=== PATIENT | female | born 1960 | race Caucasian/White ===

== ENCOUNTER 2019-01-30 06:16 | Inpatient (IN) | payer BC ==
[2019-01-26 10:24] LABS: BASOPHILS % 0.4 % (0.0-1.0); EOSINOPHILS # (AUTO) 0.2 (0.0-0.4); EOSINOPHILS % 2.7 % (0.0-6.0); HEMATOCRIT 35.4 % (34.2-44.1); HEMOGLOBIN 11.8 g/dL (12.0-16.0); LYMPHOCYTES # (AUTO) 2.1 (1.0-3.2); LYMPHOCYTES % 36.9 % (18.0-39.1); MEAN CORPUSCULAR HEMOGLOBIN 31.2 pg (28-32); MEAN CORPUSCULAR HGB CONC 33.3 g/dL (31-35); MEAN CORPUSCULAR VOLUME 93.7 fL (81-99); MONOCYTES # (AUTO) 0.9 (0.2-0.8); MONOCYTES % 15.9 % (4.4-11.3); NEUTROPHILS # (AUTO) 2.5 (2.1-6.9); NEUTROPHILS % 43.9 % (38.7-80.0); PLATELET COUNT 107 x10e3/uL (140-360); RED BLOOD COUNT 3.78 x10e6/uL (3.6-5.1); RED CELL DISTRIBUTION WIDTH 11.9 % (11.7-14.4)
[2019-01-26 10:27] LABS: INR 0.92; PROTHROMBIN TIME 12.9 seconds (11.9-14.5)
[2019-01-26 10:28] LABS: PARTIAL THROMBOPLASTIN TIME 36.5 seconds (23.8-35.5)
[2019-01-26 10:38] LABS: ALANINE AMINOTRANSFERASE 16 IU/L (0-55); ALBUMIN 3.5 g/dL (3.5-5.0); ALKALINE PHOSPHATASE 131 IU/L (40-150); ANION GAP 11.9 mmol/L (8-16); BLOOD UREA NITROGEN 9 mg/dL (7-26); BUN/CREATININE RATIO 14 (6-25); CALCIUM 9.4 mg/dL (8.4-10.2); CARBON DIOXIDE 27 mmol/L (22-29); CHLORIDE 105 mmol/L (98-107); CREATININE, SERUM 0.65 mg/dL (0.57-1.11); EST GLOMERULAR FILTRATION RATE > 60 ML/MIN (60-); GLUCOSE 79 mg/dL (74-118); POTASSIUM 3.9 mmol/L (3.5-5.1); SODIUM 140 mmol/L (136-145)
--- OUTSIDE RECORDS SUMMARY | 2019-01-29 05:34 | XMS REPORT | Clinical Summary ---
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 Active multivitamin with Take 1 tablet 0 minerals tablet by mouth daily. Active CALCIUM CARBONATE/VITAMIN Take by mouth 0 D3 (CALCIUM 500 + D, D3, daily. ORAL) Active cyanocobalamin 1000 MCG Take 1,000 0 tablet mcg by mouth daily. Active vitamin E 400 UNIT Take 400 0 capsule Units by mouth 2 (two) times a day. Active atenolol (TENORMIN) 50 MG TAKE 1 TABLET 90 tablet 1 tablet BY MOUTH 9 DAILY 04/18/2018 Discontinued hydroCHLOROthiazide Take 1 tablet 90 tablet 1 (HYDRODIURIL) 12.5 MG (12.5 mg 8 tablet total) by mouth once daily. 04/18/2018 Discontinued atenolol (TENORMIN) 50 MG Take 50 mg by 0 tablet mouth daily. 04/18/2018 Discontinued hydroCHLOROthiazide Take 25 mg by 0 (HYDRODIURIL) 25 MG mouth daily. tablet 04/18/2018 Discontinued ursodiol (ACTIGALL) 300 Take 300 mg 0 mg capsule by mouth 2 (two) times a day. 04/18/2018 Discontinued atenolol (TENORMIN) 50 MG TAKE 1 TABLET 90 tablet 0 tablet BY MOUTH 8 DAILY 09/05/2018 Discontinued estradiol (ESTRACE) 0.01 Insert 0.5 g 42.5 g 1 % (0.1 mg/gram) vaginal into the 8 creamIndications: Urinary vagina urgency, Postmenopausal nightly. atrophic vaginitis Every night for 2 weeks, then three times a week. 08/26/2018 Discontinued atenolol (TENORMIN) 50 MG Take 1 tablet 90 tablet 1 tablet (50 mg total) 8 by mouth daily. 09/22/2018 Discontinued atenolol (TENORMIN) 50 MG TAKE 1 TABLET 90 tablet 0 tablet BY MOUTH 9 DAILY 09/05/2018 Discontinued cyclobenzaprine Take 1 tablet 60 tablet 3 (FLEXERIL) 10 mg tablet (10 mg total) 9 by mouth 3 (three) times a day as needed for muscle spasms for up to 30 days. 09/06/2018 Discontinued nitrofurantoin, Take 1 10 capsule 0 macrocrystal-monohydrate, capsule (100 9 (MACROBID) 100 MG capsule mg total) by mouth 2 (two) times a day for 5 days. 10/05/2018 cyclobenzaprine Take 1 tablet 60 tablet 3 (FLEXERIL) 10 mg tablet (10 mg total) 9 by mouth 3 (three) times a day as needed for muscle spasms for up to 30 days. 09/11/2018 nitrofurantoin, Take 1 10 capsule 0 macrocrystal-monohydrate, capsule (100 9 (MACROBID) 100 MG capsule mg total) by mouth 2 (two) times a day for 5 days. 11/01/2018 Discontinued atenolol (TENORMIN) 50 MG Take 1 tablet 90 tablet 0 tablet (50 mg total) 9 by mouth daily. 12/07/2018 Discontinued nitrofurantoin, Take 1 10 capsule 0 macrocrystal-monohydrate, capsule (100 9 (MACROBID) 100 MG capsule mg total) by mouth 2 (two) times a day for 5 days. 12/12/2018 nitrofurantoin, Take 1 10 capsule 0 macrocrystal-monohydrate, capsule (100 9 (MACROBID) 100 MG capsule mg total) by mouth 2 (two) times a day for 5 days. 01/01/2019 levoFLOXacin (LEVAQUIN) Take 1 tablet 7 tablet 0 500 MG tablet (500 mg 9 total) by mouth daily for 7 days. Status Hospital, Clinic, or Ordered Dose Route Frequency Start End Date Other Facility Date Administered Medication Active triamcinolone acetonide 40 mg IM once 12/07/19 (KENALOG-40) injection 40 18 8 mgIndications: Posterior tibial tendon dysfunction Ended ropivacaine (NAROPIN) 0.2 12 mg epid continuous 12/07/19 % epidural 12 18 9 mgIndications: Posterior tibial tendon dysfunction Ended methylPREDNISolone 40 mg IM once 09/06/19 acetate (DEPO-MEDROL) 19 9 injection 40 mgIndications: Acute left-sided low back pain with left-sided sciatica Active Problems Problem Noted Date Left knee pain 09/15/2018 Right hip pain 09/15/2018 Chronic midline low back pain with left-sided sciatica 09/15/2018 Posterior tibial tendon dysfunction 12/06/2017 Chronic active hepatitis 09/03/2015 Hypertension 09/03/2015 Menopausal flushing 09/03/2015 Numbness of foot 09/03/2015 Encounters Care Team Description Date Type Specialty Althea Gentile MD 01/17/2019 Telephone Internal Medicine Lucia Camarena MA Spinal stenosis of lumbar region without neurogenic claudication 01/17/2019 Orders Only Internal Medicine Cassie Van MD 01/08/2019 Orders Only Internal Medicine Althea Gentile MD 01/08/2019 Documentation Internal Medicine Naz Basilio MA 01/05/2019 Telephone Internal Medicine Marion Desai MA Acute cystitis without hematuria (Primary Dx) 01/04/2019 Orders Only Internal Medicine Althea Gentile MD 12/27/2018 Telephone Internal Medicine Althea Gentile MD 12/25/2018 Orders Only Internal Medicine Lucia Camarena MA Abnormal urinalysis (Primary Dx) 12/22/2018 Orders Only Internal Medicine Charbel Rajput MA 12/07/2018 Telephone Urogynecology Lucia Camarena MA 12/07/2018 Orders Only Internal Medicine Althea Gentile MD 12/07/2018 Orders Only Internal Medicine Althea Gentile MD 12/05/2018 Orders Only Internal Medicine Althea Gentile MD Preop exam for internal medicine (Primary Dx); Heart murmur; Essential hypertension 11/22/2018 Office Visit Internal Medicine Althea Gentile MD 11/02/2018 Telephone Internal Medicine Althea Gentile MD 11/01/2018 Refill Internal Medicine Lucia Camarena MA 09/22/2018 Orders Only Internal Medicine Althea Gentile MD 09/22/2018 Telephone Internal Medicine Lucia Camarena MA 09/20/2018 Telephone Internal Medicine Althea Gentile MD Spinal stenosis of lumbar region without neurogenic claudication (Primary Dx) 09/18/2018 Orders Only Internal Medicine Lucia Camarena MA Acute left-sided low back pain with left-sided sciatica 09/18/2018 Orders Only Internal Medicine Gill Cornejo MD Chronic midline low back pain with left-sided sciatica (Primary Dx); Right hip pain; Left knee pain, unspecified chronicity 09/15/2018 Office Visit Neurology Lucia Camarena MA 09/14/2018 Telephone Internal Medicine Althea Gentile MD 09/14/2018 Telephone Access Lucia Camarena MA Lower abdominal pain 09/13/2018 Orders Only Internal Medicine Althea Gentile MD 09/08/2018 Orders Only Internal Medicine Althea Gentile MD 09/07/2018 Telephone Internal Medicine Althea Gentile MD 09/06/2018 Orders Only Internal Medicine Althea Gentile MD Lower abdominal pain (Primary Dx) 09/06/2018 Orders Only Internal Medicine Althea Gentile MD Lower abdominal pain (Primary Dx); Urine frequency; Acute left-sided low back pain with left-sided sciatica; Essential hypertension; Lumbar radiculopathy; Palpitations 09/05/2018 Office Visit Internal Medicine Althea Gentile MD 08/26/2018 Refill Internal Medicine Julianna Plasencia, ALCON 08/23/2018 Telephone Access Julianna Plasencia RN 08/23/2018 Nurse Triage Access Althea Gentile MD Encounter for screening mammogram for malignant neoplasm of breast 04/27/2018 Hospital Radiology Encounter Althea Gentile MD 04/24/2018 Telephone Internal Medicine Althea Gentile MD Essential hypertension (Primary Dx); Lipid screening declined by patient; 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; Encounter for screening mammogram for malignant neoplasm of breast; Immunization refused; Tinnitus of both ears; Autoimmune hepatitis (HCC); Thrombocytopenia (HCC) 04/18/2018 Office Visit Internal Medicine Arthur New MD Forbes, Eleanor M., NP Urinary urgency (Primary Dx); Dyspareunia, female; Pelvic pain; Postmenopausal atrophic vaginitis; Intramural uterine fibroid; Subserosal leiomyoma of uterus 04/17/2018 Office Visit Urogynecology Arthur New MD 04/06/2018 Telephone Urogynecology after 01/28/2018 Immunizations Name Dates Previously Given Next Due Hep B, Unspecified 06/20/2013 Tdap 06/20/2013 Family History Medical History Relation Name Comments No Known Problems Father No Known Problems Mother Relation Name Status Comments Father Maternal Grandfather Maternal Grandmother Mother Paternal Grandfather Paternal Grandmother Social History Date Tobacco Use Types Packs/Day Years Used Never Smoker Smokeless Tobacco: Never Used Alcohol Use Drinks/Week oz/Week Comments No Social Isolation Answer Date Recorded In a typical week, how many times do you talk on Never 11/22/2018 the phone with family, friends, or neighbors? How often do you get together with friends or Never 11/22/2018 relatives? How often do you attend holiness or bahai Never 11/22/2018 services? Do you belong to any clubs or organizations such No 11/22/2018 as holiness groups, unions, fraternal or athletic groups, or school groups? How often do you attend meetings of the clubs or Never 11/22/2018 organizations you belong to? Are you now , , , , 11/22/2018 never or living with a partner? Physical Activity Answer Date Recorded On average, how many days per week do you engage 0 days 11/22/2018 in moderate to strenuous exercise (like walking fast, running, jogging, dancing, swimming, biking, or other activities that cause a light or heavy sweat)? On average, how many minutes do you engage in 0 min 11/22/2018 exercise at this level? Stress Answer Date Recorded Do you feel stress - tense, restless, nervous, or Not at all 11/22/2018 anxious, or unable to sleep at night because your mind is troubled all the time - these days? Financial Resource Strain Answer Date Recorded How hard is it for you to pay for the very basics Not hard at all 11/22/2018 like food, housing, medical care, and heating? Intimate Partner Violence Answer Date Recorded Within the last year, have you been afraid of your No 11/22/2018 partner or ex-partner? Within the last year, have you been humiliated or No 11/22/2018 emotionally abused in other ways by your partner or ex-partner? Within the last year, have you been kicked, hit, No 11/22/2018 slapped, or otherwise physically hurt by your partner or ex-partner? Within the last year, have you been raped or No 11/22/2018 forced to have any kind of sexual activity by your partner or ex-partner? Food Insecurity Answer Date Recorded Within the past 12 months, you worried that your Never true 11/22/2018 food would run out before you got money to buy more. Within the past 12 months, the food you bought Never true 11/22/2018 just didn't last and you didn't have money to get more. Transportation Needs Answer Date Recorded In the past 12 months, has lack of transportation No 11/22/2018 kept you from medical appointments or from getting medications? In the past 12 months, has lack of transportation No 11/22/2018 kept you from meetings, work, or getting things needed for daily living? Sex Assigned at Date Recorded Not on file Industry Job Start Date Occupation Not on file Not on file Not on file Travel End Travel History Travel Start No recent travel history available. Last Filed Vital Signs Time Taken Vital Sign Reading 11/22/2018 9:51 AM CDT Blood Pressure 120/78 11/22/2018 9:51 AM CDT Pulse 64 11/22/2018 9:51 AM CDT Temperature 36.7 C (98 F) 11/22/2018 9:51 AM CDT Respiratory Rate 20 11/22/2018 9:51 AM CDT Oxygen Saturation 98% - Inhaled Oxygen - Concentration 11/22/2018 9:51 AM CDT Weight 75.4 kg (166 lb 3.2 oz) 11/22/2018 9:51 AM CDT Height 157.5 cm (5' 2") 11/22/2018 9:51 AM CDT Body Mass Index 30.4 Plan of Treatment Care Team Description Date Type Specialty Arthur New MD [address] [facility] [address] [place] [id number] 06/11/2019 Office Visit Urogynecology Health Maintenance Due Date Last Done Comments SHINGLES VACCINES (#1) 02/11/2008 INFLUENZA VACCINE 02/20/2020 Postponed from 01/18/2019 (Patient Refused) BREAST CANCER SCREENING 04/27/2020 04/27/2018, 04/28/2017, 04/22/2017, Additional history exists COLONOSCOPY SCREENING 07/29/2026 07/29/2016 Procedures Comments Procedure Name Priority Date/Time Associated Diagnosis URINALYSIS, COMPLETE, Routine 01/04/2019 Acute cystitis without WITH REFLEX TO CULTURE 9:48 AM CDT hematuria PROTHROMBIN TIME WITH INR Routine 01/04/2019 Preop exam for internal 9:39 AM CDT medicine PARTIAL THROMBOPLASTIN Routine 01/04/2019 Preop exam for internal TIME (PTT) 9:39 AM CDT medicine CV STRESS TEST Routine 12/25/2018 URINALYSIS, AUTOMATED Routine 12/22/2018 Abnormal urinalysis WITH MICROSCOPY 2:20 PM CDT URINE CULTURE Routine 12/22/2018 Abnormal urinalysis 2:20 PM CDT URINALYSIS, AUTOMATED Routine 12/04/2018 Preop exam for internal WITH MICROSCOPY 11:23 AM CDT medicine GGT Routine 12/04/2018 Preop exam for internal 11:23 AM CDT medicine COMPREHENSIVE METABOLIC Routine 12/04/2018 Preop exam for internal PANEL 11:23 AM CDT medicine CBC WITH PLATELET AND Routine 12/04/2018 Preop exam for internal DIFFERENTIAL 11:23 AM CDT medicine URINE CULTURE Routine 12/04/2018 Preop exam for internal 11:23 AM CDT medicine POC URINALYSIS DIPSTICK Routine 09/05/2018 Urine frequency 3:23 PM CDT URINALYSIS, AUTOMATED Routine 09/05/2018 Urine frequency WITH MICROSCOPY 3:19 PM CDT URINE CULTURE Routine 09/05/2018 Urine frequency 3:19 PM CDT COMPREHENSIVE METABOLIC Routine 09/05/2018 Essential hypertension PANEL 3:17 PM CDT CBC WITH PLATELET AND Routine 09/05/2018 Essential hypertension DIFFERENTIAL 3:17 PM CDT MAMMO BREAST SCREEN Routine 04/27/2018 Encounter for screening TOMOSYNTHESIS BILATERAL 9:34 AM [employer] mammogram for malignant neoplasm of breast URINALYSIS, AUTOMATED Routine 04/18/2018 Essential hypertension WITH MICROSCOPY 8:52 AM CDT THYROID STIMULATING Routine 04/18/2018 Lipid screening declined HORMONE 8:52 AM CDT by patient GGT Routine 04/18/2018 Lipid screening declined 8:52 AM CDT by patient VITAMIN B12 LEVEL Routine 04/18/2018 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 LIPID PANEL Routine 04/18/2018 Lipid screening declined 8:52 AM CDT by patient COMPREHENSIVE METABOLIC Routine 04/18/2018 Lipid screening declined PANEL 8:52 AM CDT by patient CBC WITH PLATELET AND Routine 04/18/2018 Essential hypertension DIFFERENTIAL 8:52 AM CDT MICROALBUMIN / CREATININE Routine 04/18/2018 Essential hypertension URINE RATIO 8:52 AM CDT MEASURE POST VOID Routine 04/17/2018 Urinary urgency RESIDUAL after 01/28/2018 Results * URINALYSIS, COMPLETE, WITH REFLEX TO CULTURE (01/04/2019 9:48 AM CDT) Color, UA YELLOW YELLOW [facility] [place] Appearance CLEAR CLEAR [facility] [place] Specific 1.009 1.001 - 1.035 [facility] gravity, urine [facility] [place] pH, urine 7.5 5.0 - 8.0 [facility] [place] Glucose, urine NEGATIVE NEGATIVE [facility] [place] Bilirubin, UA NEGATIVE NEGATIVE [facility] [place] Ketones, UA NEGATIVE NEGATIVE [facility] [place] Occult blood, NEGATIVE NEGATIVE [facility] [place] Protein, UA NEGATIVE NEGATIVE [facility] [place] Nitrite, UA NEGATIVE NEGATIVE [facility] [place] Leukocyte NEGATIVE NEGATIVE [facility] esterase, UA [facility] [place] WBC, UA NONE SEEN < OR=5 /HPF [facility] [place] RBC, UA NONE SEEN < OR=2 /HPF [facility] [place] Squamous NONE SEEN < OR=5 /HPF [facility] epithelial [facility]AGNOSTICS cells, UA [place] Bacteria, UA NONE SEEN NONE SEEN /HPF [facility] [place] Hyaline casts, NONE SEEN NONE SEEN /LPF [facility] [place] Reflex NO CULTURE INDICATED [facility] [place] Specimen Narrative Performed At FASTING:NO [facility] FASTING: NO Resulting Agency Comment Performing Organization Information: Site ID: [id number] Name: [facility] Address: [address] [place] [phone] Director: Nicolle Edmond Performing Organization Address City/State/Zipcode Phone Number [place] [address] * Partial thromboplastin time, activated (01/04/2019 9:39 AM CDT) Pathologist [facility] PTT 34 22 - 34 sec [facility] Comment: DIAGNOSTICS This test has not been [facility] validated for monitoring unfractionated heparin therapy. For testing that is validated for this type of therapy, please refer to the Heparin Anti-Xa assay (test code 45884). For additional information, please refer to http://education.[employer].com/faq/GLF264 (This link is being provided for informational/educational purposes only.) Specimen Blood Narrative Performed At FASTING:NO [facility] FASTING: NO Resulting Agency Comment Performing Organization Information: Site ID: [facility] Name: [facility] Address: [address] [place] [phone] Director: Nicolle Edmond Performing Organization Address City/[facility] Phone Number [place] [address] * Prothrombin time with INR (01/04/2019 9:39 AM CDT) INR 1.0 [facility] Comment: [facility]ST[facility] Reference [place] Range 0.9-1.1 Moderate-intensity Warfarin Therapy 2.0-3.0 Higher-intensity Warfarin Therapy 3.0-4.0 Prothrombin 10.0 9.0 - 11.5 sec [facility] time Comment: DIAGNOSTICS For more information on this [place] test, go to: http://education.[employer]X/faq/TLE282 Specimen Blood Narrative Performed At FASTING:NO [facility] FASTING: NO Resulting Agency Comment Performing Organization Information: Site ID: [facility] Name: [facility] Address: [address] [place] [phone] Director: Nicolle Edmond Performing Organization Address [facility] Phone Number [place] [address] * Cv stress test (12/25/2018) Narrative Performed At * Urinalysis, automated with microscopy (12/22/2018 2:20 PM CDT) Only the most recent of 4 results within the time period is included. Color, UA YELLOW YELLOW [facility] [place] Appearance CLEAR CLEAR [facility] [place] Specific 1.010 1.001 - 1.035 [facility] gravity, urine [facility] [place] pH, urine 7.5 5.0 - 8.0 [facility] [place] Glucose, urine NEGATIVE NEGATIVE [facility] [place] Bilirubin, UA NEGATIVE NEGATIVE [facility] [place] Ketones, UA NEGATIVE NEGATIVE [facility] [place] Occult blood, NEGATIVE NEGATIVE [facility] [place] Protein, UA NEGATIVE NEGATIVE [facility] [place] Nitrite, UA NEGATIVE NEGATIVE [facility] [place] Leukocyte NEGATIVE NEGATIVE [facility] esterase, UA [facility] [place] WBC, UA NONE SEEN < OR=5 /HPF [facility] [place] RBC, UA NONE SEEN < OR=2 /HPF [facility] [place] Squamous 0-5 < OR=5 /HPF [facility] epithelial [facility]AGNOSTICS cells, UA [place] Bacteria, UA MANY (A) NONE SEEN /HPF [facility] [place] Hyaline casts, NONE SEEN NONE SEEN /LPF [facility] [place] Specimen Urine Narrative Performed At FASTING:NO [facility] FASTING: NO Resulting Agency Comment Performing Organization Information: Site ID: [id number] Name: [facility] Address: [address] [place] [phone] Director: Nicolle Edmond Performing Organization Address City/State/Zipcode Phone Number MIKE [facility] [place] [address] [place] [address] * Urine culture (12/22/2018 2:20 PM CDT) Only the most recent of 3 results within the time period is included. Urine culture SEE NOTE (A) [facility] Comment: DIAGNOSTICS CULTURE, URINE, ROUTINE [place] MICRO NUMBER:[id number] TEST STATUS: FINAL SPECIMEN SOURCE: URINE SPECIMEN QUALITY:ADEQUATE RESULT: Greater than 100,000 CFU/mL of Escherichia coli E.coli -------- -------- INT JUNIE AMOX/CLAVULANATE S 4 AMPICILLIN S 8 AMP/SULBACTAM S 4 CEFAZOLIN NR<=4 2 CEFEPIME S <=1 CEFTRIAXONE S <=1 CIPROFLOXACIN S <=0.25 GENTAMICIN S <=1 IMIPENEM S <=0.25 LEVOFLOXACIN S <=0.12 NITROFURANTOIN S <=16 PIP/TAZOBACTAM S <=4 TOBRAMYCIN S <=1 TRIMETHOPRIM/SULFA S <=20 S=SusceptibleI=Intermediat eR=Resistant*=Not Tested NR=Not ReportedNN=See Therapy Comments THERAPY COMMENTS Note 1: For infections other than uncomplicated UTI caused by E. coli, K. pneumoniae or P. mirabilis: Cefazolin is resistant if JUNIE > or=8 mcg/mL. (Distinguishing susceptible versus intermediate for isolates with JUNIE < or=4 mcg/mL requires additional testing.) Note 2: For uncomplicated UTI caused by E. coli, K. pneumoniae or P. mirabilis: Cefazolin is susceptible if JUNIE <32 mcg/mL and predicts susceptible to the oral agents cefaclor, cefdinir, cefpodoxime, cefprozil, cefuroxime, cephalexin and loracarbef. Specimen Urine Narrative Performed At FASTING:NO [facility] FASTING: NO Resulting Agency Comment Performing Organization Information: Site ID: [id number] Name: [facility] Address: [address] [place] [phone] Director: Nicolle Edmond Performing Organization Address [facility] Phone Number MI[facility] [place] [address] [place] [phone] * CBC with platelet and differential (12/04/2018 11:23 AM CDT) Only the most recent of 3 results within the time period is included. WBC 8.2 3.8 - 10.8 [facility] Thousand/uL [facility] [place] RBC 3.85 3.80 - 5.10 [facility] Million/uL [facility] [place] HGB 12.1 11.7 - 15.5 g/dL [facility] [place] HCT 35.6 35.0 - 45.0 % [facility] [employer] [place] MCV 92.5 80.0 - 100.0 fL [facility] [place] MCH 31.4 27.0 - 33.0 pg [facility] [place] MCHC 34.0 32.0 - 36.0 g/dL [facility] [place] RDW 12.6 11.0 - 15.0 % [facility] [place] Platelet count 126 (L) 140 - 400 [facility] Thousand/uL [facility] [place] MPV 13.5 (H) 7.5 - 12.5 fL [facility] [place] Neutrophils, 4,617 1,500 - 7,800 [facility] absolute cells/uL [facility] [place] Lymphocytes, 2,485 850 - 3,900 cells/uL [facility] absolute [facility] [place] Monocytes, 894 200 - 950 cells/uL [facility] absolute [facility] [place] Eosinophils, 131 15 - 500 cells/uL [facility] absolute [facility] [place] Basophils, 74 0 - 200 cells/uL [facility] absolute [facility] [place] Neutrophils 56.3 % [facility] [place] Lymphocytes 30.3 % [facility] [place] Monocytes 10.9 % [facility] [place] Eosinophils 1.6 % [facility] [place] Basophils + RC 0.9 % [facility] [employer] [place] Specimen Blood Narrative Performed At FASTING:NO [facility] FASTING: NO Resulting Agency Comment Performing Organization Information: Site ID: [id number] Name: [facility] Address: [address] [place] [phone] Director: Nicolle Edmond Performing Organization Address City/[facility] Phone Number [facility] [place] [address] [place], [place] [phone] * GGT (12/04/2018 11:23 AM CDT) Only the most recent of 2 results within the time period is included. GGT 108 (H) 3 - 65 U/L [facility] [place] Specimen Blood Narrative Performed At FASTING:NO [facility] FASTING: NO Resulting Agency Comment Performing Organization Information: Site ID: [id number] Name: [facility] Address: [address] [place] [phone] Director: Nicolle Edmond Performing Organization Address City/State/Zipcode Phone Number [facility] [place] [address] [place], [place] [phone] * Comprehensive metabolic panel (12/04/2018 11:23 AM CDT) Only the most recent of 3 results within the time period is included. Glucose 88 65 - 139 mg/dL [facility] Comment: DI[facility]NOSTICS Non-fasting [place] reference interval BUN, whole 16 7 - 25 mg/dL [facility] blood [facility] [place] Creatinine 0.61 0.50 - 0.99 mg/dL [facility] Comment: DIAGNOSTICS For patients >49 years of age, [place] the reference limit for Creatinine is approximately 13% higher for people identified as -Nigerien. EGFR Non-Afr. 99 > OR=60 [facility] [place]ien mL/min/1.73m2 [facility] [place] EGFR 114 > OR=60 [facility] Nigerien mL/min/1.73m2 [facility] [place] BUN/creatinine NOT APPLICABLE 6 - 22 (calc) [facility] ratio [facility] [place] Sodium 138 135 - 146 mmol/L [facility] [place] Potassium 4.2 3.5 - 5.3 mmol/L [facility] [place] Chloride 101 98 - 110 mmol/L [facility] [place] CO2 31 20 - 32 mmol/L [facility] [place] Calcium 9.3 8.6 - 10.4 mg/dL [facility] [place] Protein 6.8 6.1 - 8.1 g/dL [facility] [place] Albumin, S 3.8 3.6 - 5.1 g/dL [facility] [place] Globulin, total 3.0 1.9 - 3.7 g/dL [facility] (calc[facility] [place] Albumin/globuli 1.3 1.0 - 2.5 (calc) [facility] n [facility] [place] Total bilirubin 0.7 0.2 - 1.2 mg/dL [facility] [place] Alkaline 105 33 - 130 U/L [facility] [place] AST 16 10 - 35 U/L [facility] [place] ALT 15 6 - 29 U/L [facility] [place] Specimen Blood Narrative Performed At FASTING:NO [facility] FASTING: NO Resulting Agency Comment Performing Organization Information: Site ID: [id number] Name: [facility] Address: [address] [place] [phone] Director: Nicolle Edmond Performing Organization Address City/State/Zipcode Phone Number [facility] [address] [address] * POC urinalysis dipstick (09/05/2018 3:23 PM CDT) Color urine, Dark Yellow POC Clarity urine, Hazy POC Glucose urine, Negative Negative POC Bilirubin Negative Negative urine, POC Ketones urine, Negative Negative POC Specific 1.010 1.005 - 1.030 gravity urine, POC Blood urine, Trace (A) Negative POC pH urine, POC 6.0 5.0, 5.5, 6.0, 6.5, 7.0, 7.5, 8.0, 8.5 Protein urine, Trace (A) Negative POC Urobilinogen <2.0 <2.0 urine, POC Nitrite urine, Negative Negative POC Leukocyte Trace (A) Negative esterase urine, POC Specimen Urine * Mammo Breast Screen Tomosynthesis Bilateral (04/27/2018 9:34 AM [facility]) Specimen Narrative Performed At PROCEDURE: MAMMO BREAST SCREEN TOMOSYNTHESIS BILATERAL [facility] Computer aided detection was utilized for the interpretation of the digital bilateral screening mammography with tomosynthesis. COMPARISON: 2017. DENSITY: The breast are heterogenously dense, which may obscure small masses. There are some benign-appearing punctate and round calcination sparsely seen bilaterally. No adverse changes. No sign of a new cluster calcification or mass. IMPRESSION:No mammographic evidence of malignancy. RECOMMENDATION: Comparison with physical exam and annual screening mammography. BI-RADS 2: Benign findings. This facility is accredited by [employer] for Mammography. A negative x-ray report should not delay biopsy if a dominant or clinically suspicious mass is present. Not all cancers are identified by x-ray. [id number] Performing Organization Address City/State/Zipcode Phone Number [facility] [address] [place] [address] * Microalbumin / creatinine urine ratio (04/18/2018 8:52 AM CDT) Creatinine, 103 20 - 275 mg/dL [facility], [facility] [place] Microalbumin, 0.9 See Note: mg/dL [facility] urine Comment: [facility] Reference Range: [place] Reference Range Not established Microalbumin/cr 9 <30 mcg/mg creat [facility] eatinine ratio Comment: DIAGNOSTICS The ADA defines abnormalities SCHULTZ in albumin excretion as follows: Category Result (mcg/mg creatinine) Normal <30 Microalbuminuria 30-299 Clinical albuminuria > AI=428 The ADA recommends that at least two of three specimens collected within a 3-6 month period be abnormal before considering a patient to be within a diagnostic category. Specimen Urine Narrative Performed At FASTING:YES [facility] FASTING: YES Resulting Agency Comment Performing Organization Information: Site ID: [id number] Name: [facility] Address: [address] [place] [phone] Director: Nicolle Edmond Performing Organization Address [facility] Phone Number [place] [address] * Thyroid stimulating hormone (04/18/2018 8:52 AM CDT) TSH 3.80 0.40 - 4.50 mIU/L [facility] [place] Specimen Blood Narrative Performed At FASTING:YES [facility] FASTING: YES Resulting Agency Comment Performing Organization Information: Site ID: [id number] Name: [facility] Address: [address] [place] [phone] Director: Nicolle Edmond Performing Organization Address [facility] Phone Number [place] [address] * Vitamin B12 level (04/18/2018 8:52 AM CDT) Vitamin B12 1,913 (H) 200 - 1,100 pg/mL [facility] [place] Specimen Blood Narrative Performed At FASTING:YES [facility] FASTING: YES Resulting Agency Comment Performing Organization Information: Site ID: [id number] Name: [facility] Address: [address] [place] [phone] Director: Nicolle Edmond Performing Organization Address [facility] [place] [address] * Lipid panel (04/18/2018 8:52 AM CDT) Pathologist [facility] Cholesterol, 186 <200 mg/dL [facility] [place] HDL cholesterol 87 >50 mg/dL [facility] [place] Triglycerides 67 <150 mg/dL [facility] [place] LDL cholesterol 85 mg/dL (calc) [facility] calculated Comment: DI[facility]STICS Reference range: <100 [place] Desirable range <100 mg/dL for primary prevention; <70 mg/dL for patients with CHD or diabetic patients with > or=2 CHD risk factors. LDL-C is now calculated using the Keith calculation, which is a validated novel method providing better accuracy than the Friedewald equation in the estimation of LDL-C. Richmond SS et al. LILIANA. 2013;310(19): 5222-1262 (http://education.joiz/faq/TTB844) Cholesterol/HDL 2.1 <5.0 (calc) [facility] [place] Non-HDL 99 <130 mg/dL (calc) [facility] cholesterol Comment: DIAGNOSTICS For patients with diabetes [place] plus 1 major ASCVD risk factor, treating to a non-HDL-C goal of <100 mg/dL (LDL-C of <70 mg/dL) is considered a therapeutic option. Specimen Blood Narrative Performed At FASTING:YES [facility] FASTING: YES Resulting Agency Comment Performing Organization Information: Site ID: [id number] Name: [facility] Address: [address] [place] [phone] Director: Nicolle Edmond Performing Organization Address City/State/Zipcode Phone Number [facility] [place] [address] * Measure post void residual (04/17/2018) Pathologist [facility] Total volume, 0 ml urine Specimen after 01/28/2018 Insurance Type Payer Benefit Subscriber ID Effective Phone Address Plan / Dates Group PPO BCBS BCBS xxxxxxxxxxxxx 2017- CHOICE Present PPO/MERCEDES CARRASCO PPO Advance Directives Patient has advance care planning documents on file. For more information, sidney terrell contact: Hank Eisenberg [address] [place] [address]
--- OUTSIDE RECORDS SUMMARY | 2019-01-29 05:34 | XMS REPORT | Clinical Summary ---
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 Active vitamin E 400 UNIT Take 400 0 capsuleIndications: Units by Abnormal liver enzymes, mouth 2 (two) Fatty liver disease, times daily. nonalcoholic, Thrombocytopenia (HCC) Active cyanocobalamin (VITAMIN Take 1,000 0 B-12) 1000 MCG mcg by mouth tabletIndications: daily. Abnormal liver enzymes, Fatty liver disease, nonalcoholic, Thrombocytopenia (HCC) Active multivitamin Take 1 0 capsuleIndications: capsule by Abnormal liver enzymes, mouth daily Fatty liver disease, Women's 50 + nonalcoholic, generic Thrombocytopenia (HCC) equate multivitamins . Active calcium carbonate Take 600 mg 0 (OS-EL) 600 mg calcium by mouth 2 (1,500 mg) (two) times TabIndications: Abnormal daily with liver enzymes, Fatty breakfast and liver disease, dinner. nonalcoholic, Thrombocytopenia (HCC) Active ursodiol (ACTIGALL) 300 Take 1 180 capsule 5 201 mg capsuleIndications: capsule (300 9 Autoimmune hepatitis mg total) by (HCC), Abnormal liver mouth 2 (two) enzymes times daily. 02/06/2018 Discontinued hydrochlorothiazide Take 12.5 mg 0 (HYDRODIURIL) 12.5 MG by mouth 6 tablet twice a week TAKE ONE TABLET BY MOUTH ONCE DAILY. 02/06/2018 Discontinued ursodiol (ACTIGALL) 300 Take 1 180 capsule 3 mg capsuleIndications: capsule (300 8 Abnormal liver enzymes, mg total) by Fatty liver disease, mouth 2 (two) nonalcoholic, times daily. Thrombocytopenia (HCC) 09/18/2018 Discontinued ursodiol (ACTIGALL) 300 Take 1 180 capsule 5 mg capsule capsule (300 8 mg total) by mouth 2 (two) times daily. Active Problems Problem Noted Date Thrombocytopenia 02/06/2018 Overweight (BMI 25.0-29.9) 02/06/2018 Risk of Osteoporosis 01/09/2015 Muscle pain 01/09/2015 Risk of Vitamin D deficiency 01/09/2015 Constipation 01/09/2015 Menopausal symptoms 09/19/2014 Peripheral edema 06/07/2014 Hepatitis 06/07/2014 Autoimmune hepatitis 09/12/2013 Last Assessment & Plan: Diagnosis was based on the laboratory results and liver biopsy evidence of interface hepatitis and mild steatosis without GAMEZ. WE will obtain the liver biopsy slides for review. We recommended additional autoantibody testing, IgG subclasses, retesting AMA using the M2 ELY (PBC-specific autoantigens) and testing for HEV IgG/IgM and celiac sprue using tissue transglutaminase. Based on the results of our laboratory testing and review of the liver biopsy, we will calculate the International Autoimmune Hepatitis Group Score to aid in establishing the diagnosis. To minimize the potential for prednisone-induced side effects, non-cirrhotic patients with AIH have been successfully treated with budesonide, which undergoes first pass hepatic extraction and eliminates systemic exposure. Thus, if AIH is confirmed, we would recommend converting to budesonide for immunosuppression. Abnormal liver enzymes 09/12/2013 Last Assessment & Plan: The initial pattern was mixed hepatocellular and cholestatic with ALT>AST, indicating the absence of cirrhosis. This was corroborated by the US and the CT-guided liver biopsy showing stage 1 fibrosis. The fluctuating alk phos is atypical for an adult cholestatic disease, such as PBC or PSC. AMA was negative, but the records did not included results for other autoantibodies. The biopsy report used the term "chronic active hepatitis", which is an older term for interface hepatitis. Thus, autoimmune hepatitis is a diagnostic consideration and she is currently on monotherapy with prednisone 20 mg. We recommended additional autoantibody testing, IgG subclasses, retesting AMA using the M2 ELY (PBC-specific autoantigens) and testing for HEV IgG/IgM and celiac sprue using tissue transglutaminase. Fatty liver disease, nonalcoholic 09/12/2013 Overview: ICD9 DX Shearer Helper L ast Assessment & Plan: Both the US and liver biopsy showed parenchymal steatosis. The biopsy report did not describe ballooning degeneration of hepatocytes, the chapin diagnostic feature of GAMEZ. In the absence of alcohol, she appears to have NAFLD concurrently with a comorbid process responsible for the report of interface hepatitis. Risk factors for NAFLD are obesity and hypercholesterolemia. We will obtain the liver biopsy slides for independent review. Fatigue 09/12/2013 Last Assessment & Plan: Fatigue is a non-specific symptom and she does not have features characteristic of fatigue caused by systemic inflammation. She is at risk for hypothyroidism. We ordered TSH, which had last been tested in 2012. Abdominal pain 09/12/2013 Hypertension 09/12/2013 Last Assessment & Plan: Treated and controlled on atenolol, which is safe and not hepatotoxic. Hyperlipidemia 09/12/2013 Last Assessment & Plan: She has had elevation of total and LDL cholesterol with normal triglycerides. The weight loss recommended for obesity should reduce the levels. If she has a genetic predisposition, a statin may be required. Statins can be safely used in patients with liver disease, but we do not recommend it until adequate dietary and weigh loss measures have been tried. History of Heart murmur 09/12/2013 Osteoarthritis 09/12/2013 Immunity status testing 09/12/2013 Last Assessment & Plan: All patients with chronic liver disease, regardless of etiology, should be immunized to prevent hepatitis A and hepatitis B if they are not already immune. We will test for immunity to both viruses - vaccine recommendations will follow. Resolved Problems Problem Noted Date Resolved Date Obesity 09/14/2013 02/06/2018 Last Assessment & Plan: BMI > 30 is a significant risk factor for NAFLD (see above). We recommended a 10% weight loss, which disproportionately decreases visceral fat and can ameliorate hepatic steatosis and steatohepatitis by 95-100%. We recommended a modified Arminda's diet, substituting vegetables for wheat, corn, potato or rice or foods made from the flours of these carbohydrates. Encounters Care Team Description Date Type Specialty Jacque Orosco RN Abnormal liver enzymes (Primary Dx); Autoimmune hepatitis (HCC) 09/18/2018 Orders Only Hepatology Jacque Orosco RN Back Pain 09/07/2018 Telephone Hepatology Paris Hudson MA shot for shingles 08/29/2018 Telephone Hepatology Paris Hudson MA 08/25/2018 Abstract Hepatology Maritza Fontaine RN Follow up 08/22/2018 Telephone HepatMaritza Jacques RN 08/22/2018 Abstract Hepatology Maritza Fontaine RN Autoimmune hepatitis (HCC) (Primary Dx); Lower abdominal pain 08/22/2018 Orders Only Hepatology Zina Means, CARLITO Fibroscan Report 08/16/2018 Telephone Hepatology Chip Justice MD Abnormal liver enzymes (Primary Dx); Fatty liver disease, nonalcoholic; Abnormal liver diagnostic imaging; Lower abdominal pain; Hepatitis; Essential hypertension; Thrombocytopenia ; Overweight (BMI 25.0-29.9); Hyperlipidemia, unspecified hyperlipidemia type; Immunity status testing; Peripheral edema 08/14/2018 Office Visit Hepatology Juaquin Quevedo MD Hollinger, F. Blaine, MD Fatty liver disease, nonalcoholic (Primary Dx); Abnormal liver enzymes; Thrombocytopenia (HCC); Essential hypertension; Hepatitis; Pain of upper abdomen; Peripheral edema; Immunity status testing; Thrombocytopenia ; Overweight (BMI 25.0-29.9); Hyperlipidemia, unspecified hyperlipidemia type 02/06/2018 Office Visit Hepatology Chip Justice MD 01/30/2018 Orders Only Hepatology after 01/28/2018 Immunizations Name Dates Previously Given Next Due Hepatitis B 04/14/2017, 10/11/2016 Family History Medical History Relation Name Comments Stroke Father Kidney failure Mother Relation Name Status Comments Brother Alive no medical problems Father (Age 71) Mother (Age 65) Sister Alive Sister Alive no medical problems Social History Date Tobacco Use Types Packs/Day Years Used Never Smoker Alcohol Use Drinks/Week oz/Week Comments No Sex Assigned at Date Recorded Not on file Industry Job Start Date Occupation Not on file Not on file Not on file Travel End Travel History Travel Start No recent travel history available. Last Filed Vital Signs Time Taken Vital Sign Reading 08/14/2018 9:34 AM [facility] Blood Pressure 141/82 08/14/2018 9:29 AM [facility] Pulse 60 08/14/2018 9:29 AM [facility] Temperature 36.3 C (97.4 F) 08/14/2018 9:29 AM [facility] Respiratory Rate 18 08/14/2018 9:29 AM [facility] Oxygen Saturation 95% - Inhaled Oxygen - Concentration 08/14/2018 9:29 AM [facility] Weight 74.3 kg (163 lb 14.4 oz) 08/14/2018 9:29 AM [facility] Height 157.5 cm (5' 2") 08/14/2018 9:29 AM [facility] Body Mass Index 29.98 Plan of Treatment Care Team Description Date Type Specialty Chip Justice MD One [facility] [address] [place] [address] [phone] 02/12/2019 Appointment Radiology Resource, [facility] Hepatology Clinic B 02/12/2019 Office Visit Hepatology Procedures Comments Procedure Name Priority Date/Time Associated Diagnosis URINALYSIS W/ MICROSCOPIC Routine 08/23/2018 Autoimmune hepatitis 11:37 AM [facility] (HCC) Lower abdominal pain URINE CULTURE Routine 08/23/2018 Autoimmune hepatitis 11:37 AM [facility] (HCC) Lower abdominal pain CBC W/PLT COUNT & AUTO Routine 08/14/2018 Abnormal liver enzymes DIFFERENTIAL 11:18 AM [facility] PROTHROMBIN TIME/INR Routine 08/14/2018 Abnormal liver enzymes 11:18 AM [facility] CBC W/PLT COUNT & AUTO Routine 08/14/2018 Abnormal liver enzymes DIFFERENTIAL 11:18 AM [facility] MISCELLANEOUS LAB ORDER Routine 08/14/2018 Abnormal liver enzymes 11:18 AM [facility] PLATELET COUNT Routine 04/10/2018 Thrombocytopenia (HCC) 9:35 AM CDT THROMBOPOIETIN (TPO) Routine 01/30/2018 10:03 AM CDT after 01/28/2018 Results * Urinalysis w/ Microscopic (08/23/2018 11:37 AM [facility]) Color, UA YELLOW YELLOW [facility] Appearance CLEAR CLEAR [facility] Specific [place], UA 1.005 1.001 - 1.035 [facility] pH, UA 6.5 5.0 - 8.0 [facility] Glucose, Urine NEGATIVE NEGATIVE [facility] Bilirubin, UA NEGATIVE NEGATIVE [facility] Ketones, UA NEGATIVE NEGATIVE [facility] Blood, UA NEGATIVE NEGATIVE [facility] Protein, UA NEGATIVE NEGATIVE [facility] Nitrite, UA NEGATIVE NEGATIVE [facility] WBC Esterase NEGATIVE NEGATIVE [facility] WBC, UA NONE SEEN < OR=5 /HPF [facility] RBC, UA NONE SEEN < OR=2 /HPF [facility] Squam Epithel, UA NONE SEEN < OR=5 /HPF [facility] Bacteria NONE SEEN NONE SEEN /HPF [facility] Hyaline Casts, UA NONE SEEN NONE SEEN /LPF [facility] Specimen Urine Narrative Performed At FASTING:NO [facility] FASTING: NO Resulting Agency Comment Performing Organization Information: Site ID: [facility]: [facility] Address: [address] [place] [phone] Director: Nicolle Edmond Performing Organization Address [facility] Phone Number [facility] [address] [place] [address] [facility] * Urine culture (08/23/2018 11:37 AM [facility]) Culture Comment: [employer] CULTURE, URINE, SPECIAL MICRO NUMBER:[id number] TEST STATUS: FINAL SPECIMEN SOURCE: OTHER (SPECIFY) SPECIMEN QUALITY:ADEQUATE RESULT: No Growth Specimen Urine Narrative Performed At FASTING:NO [facility] FASTING: NO Resulting Agency Comment Performing Organization Information: Site ID: [facility] Name: [facility] Address: [address] [place] [phone] Director: Nicolle Edmond Performing Organization Address City/[facility]/Zipcode Phone Number [facility] [address] [place] [address] [facility] * Miscellaneous lab test (08/14/2018 11:18 AM [facility]) Scan Result [facility] Specimen Blood Narrative Performed At Performing Organization Address City/State/Zipcode Phone Number [facility] [address] [place], [place] * CBC with platelet count + automated diff (08/14/2018 11:18 AM [facility]) WBC 4.8 3.5 - 10.5 K/L [facility] RBC 4.06 3.93 - 5.22 M/L [facility] Hemoglobin 12.5 11.2 - 15.7 GM/DL [facility] Hematocrit 39.0 34.1 - 44.9 % [facility] MCV 96.1 (H) 79.4 - 94.8 fL [facility] MCH 30.8 25.6 - 32.2 pg [facility] MCHC 32.1 (L) 32.2 - 35.5 GM/DL [facility] RDW 12.0 11.7 - 14.4 % [facility] Platelets 97 (L) 150 - 450 K/CU MM [facility] MPV 13.5 (H) 9.4 - 12.3 fL [facility] nRBC 0 0 - 0 /100 WBC [facility] % Neutros 35 % [facility] % Lymphs 51 % [facility] % Monos 11 % [facility] % Eos 3 % [facility] % Baso 1 % [facility] # Neutros 1.64 1.56 - 6.13 K/L [facility] # Lymphs 2.43 1.18 - 3.74 K/L [facility] # Monos 0.51 (H) 0.24 - 0.36 K/L [facility] # Eos 0.14 0.04 - 0.36 K/L [facility] # Baso 0.04 0.01 - 0.08 K/L [facility] Immature 0 0 - 1 % [facility] Granulocytes-Relative [facility] Specimen Blood Performing Organization Address City/State/Zipcode Phone Number [facility] [address] [place] [address] MEDICAL CENTER * Pro-time/INR (08/14/2018 11:18 AM [facility]) Protime 12.4 11.7 - 14.7 seconds [facility] INR 0.9 <=5.9 [facility] Specimen Blood Narrative Performed At RECOMMENDED COUMADIN/WARFARIN INR THERAPY RANGES [facility] STANDARD DOSE: 2.0 - 3.0 Includes: PROPHYLAXIS for venous thrombosis, [facility] systemic embolization; TREATMENT for venous thrombosis and/or pulmonary embolus. HIGH RISK: Target INR is 2.5-3.5 for patients with mechanical heart valves. Performing Organization Address City/[facility]/Zipcode Phone Number [id number] [place] [address] [phone] * Platelet count (04/10/2018 9:35 AM CDT) Platelets 115 (L) 150 - 450 K/CU MM [facility] Specimen Blood Performing Organization Address City/[facility] Phone Number [address] [address] [phone] * THROMBOPOIETIN (TPO) (01/30/2018 10:03 AM CDT) THROMBOPOIETIN (TPO) 64 7 - 99 pg/mL DANIELA Comment: This test was performed using a kit that has not been cleared or approved by the FDA. The analytical performance characteristics of this test have been determined by [facility]. This test should not be used for diagnosis without confirmation by other medically established means. Specimen Narrative Performed At FASTING:NO [facility] AN UPDATE OR CORRECTION HAS BEEN MADE TO NAME FASTING: NO Resulting Agency Comment Performing Organization Information: Site ID: EZ Name: [facility] [facility], Address: [address] [place] [phone] Director: Dhara Manuel MD,PhD,AYDE Performing Organization Address City/State/Zipcode Phone Number [facility] [address] [place] [address] DANIELA after 01/28/2018 Insurance Payer Benefit Subscriber ID Type Phone Address Plan / Group [facility]UE [facility] x[facility]xxxx PPO [phone] [address] POS/PP[place] [address] O
--- OUTSIDE RECORDS SUMMARY | 2019-01-29 05:35 | XMS REPORT ---
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 [id number] 400 UNIT Orally Once a day Active 1 capsule Calcium Carbonate [facility] 49526666268 600 MG Orally BID Active as directed Vitamin B-12 [facility] 59003011944 1000 MCG Orally Once a day Active 1 tablet Multivitamin Adult [facility] 32230576954 - Orally Active as directed Ursodiol [facility] 91423656521 300 MG Orally BID Active as directed Atenolol [facility] 97537560930 50 MG Orally Once a day Active 1 tablet Results No Known Results Summary Purpose eClinicalWorks Submission
--- OUTSIDE RECORDS SUMMARY | 2019-01-29 05:35 | XMS REPORT | Continuity of Care Document ---
Author Author deskwolf Organization [employer] Address Unknown Phone Unavailable Care Team Providers Care Sewage Disposal Engineer Name Role Phone [facility]wolf Unavailable Unavailable Problems Problem Status Onset Date Classification Date Reported Comments Source Pain in left shoulder 08/04/2017 11/03/2017 [facility] FALL Active 07/28/2017 [facility] Shoulder pain, left 07/28/2017 11/03/2017 [facility] Fall 07/28/2017 11/03/2017 [facility] BRONCHITIS, CHF, CP Active 10/18/2011 [facility] Inflammatory liver disease, unspecified 11/03/2017 [facility] Fall on same level from slipping, tripping and stumbling without subsequent striking against object, initial encounter 11/03/2017 [facility] Chest pain Active Problem 11/03/2017 [facility] Cough Active Problem 11/03/2017 [facility] Shortness of breath Active Problem 11/03/2017 [facility] Chest pain Active Problem 10/21/2011 [facility] Cough Active Problem 10/21/2011 [facility] Shortness of breath Active Problem 10/21/2011 [facility] Encounter for preprocedural cardiovascular examination Active Diagnosis 12/28/2018 [facility] HTN , benign Active Problem 12/28/2018 [facility] SOB Active Diagnosis 12/28/2018 [facility] Chest pain at rest Active Diagnosis 12/28/2018 [facility] Medications Medication Details Route Status Patient Instructions Ordering Provider Order Date Source Tylenol 650 mg, 2 tab, Route: PO, Drug form: TAB, ONCE, Dosing Weight 75, kg, Priority: STAT, Start date: 07/28/17 20:20:00 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 (Same as: Tylenol) Inactive 07/29/2017 [facility] tramadol hydrochloride 50 MG Oral Tablet 50 mg=1 tab, PO, Q6H, PRN Pain, X 3 day, # 12 tab, 0 Refill(s) No Longer Active 07/29/2017 [facility] Acetaminophen 650 mg, 1 supp, Route: MA, Drug form: SUPP, ONCE, Dosing Weight 75, kg, Priority: STAT, Start date: 07/28/17 19:39:00 ADHESIVE BANDAGE MACHINE OPERATOR, Stop date: 07/28/17 19:39:00 CSTNotes: Max [id number]=7984 mg/day (4 gm/day). (Same as: Tylenol) Inactive 07/29/2017 [facility] azithromycin 500 mg, 250 mL, Route: IVPB, Drug form: PDR/INJ, [id number], Start date: 10/19/11 11:00:00, Duration: 30 day, Stop date: 11/17/11 11:00:00 IVPB No Longer Active [facility] 10/19/2011 [facility] Rocephin 1 gm, Route: IVPB, [id number], Start date: 10/19/11 11:00:00, Duration: 30 day, Stop date: 11/17/11 11:00:00 IVPB No Longer Active [facility] 10/19/2011 [facility] Robitussin-AC oral syrup 5 ml, PO, Q4H, PRN, 75 mL, for cough, Substitution Allowed, Maintenance, SYRP PO Active [facility] 10/19/2011 [facility] Azithromycin 5 Day Dose Pack 250 mg oral tablet See Instructions, 1 pkg, Substitution Allowed, as directed on package labelingas directed on package labeling Active [facility] 10/19/2011 [facility] albuterol 90 mcg/inh inhalation aerosol 1- 2 puff, INHALATION, QID, PRN, 1 unit, wheezing, Substitution Allowed, Maintenance INHALATION Active [facility] 10/19/2011 [facility] aspirin 325 mg, 1 tab, Route: PO, Drug form: TAB, Daily, Start date: 10/19/11 9:00:00, Duration: 30 day, Stop date: 11/17/11 9:00:00 PO No Longer Active [facility] 10/19/2011 [facility] metoprolol tartrate 25 mg, 1 tab, Route: PO, Drug form: TAB, BID, first dose now, Start date: 10/19/11 9:00:00, Duration: 30 day, Stop date: 11/17/11 17:00:00 PO No Longer Active [facility] 10/19/2011 [facility] iron sulfate (ferrous sulfate) 325 mg oral tablet Substitution Allowed Active 10/19/2011 [facility] albuterol 0.083% inhalation solution 2.49 mg, 3 mL, Route: INHALATION, Drug form: SOLN, RQ4H, Start date: 10/19/11 3:00:00, Duration: 30 day, Stop date: 11/17/11 23:00:00 INHALATION No Longer Active [facility] 10/19/2011 [facility] penicillin V potassium 500 mg oral tablet Substitution Allowed Active 10/19/2011 [facility] Nyquil Cold & Flu Substitution Allowed, Maintenance Active 10/19/2011 [facility] Robitussin-DM 10 mL, Route: PO, Drug Form: SYRP, Q4H, PRN as needed for cough, Start date: 10/19/11 1:14:00, Duration: 30 day, Stop date: 11/18/11 1:13:00 PO No Longer Active [facility] 10/19/2011 [facility] SoluMedrol 40 mg, 1 mL, Route: IV, Drug form: INJ, ONCE, Start date: 10/19/11 1:07:00, Stop date: 10/19/11 1:07:00 IV No Longer Active [facility] 10/19/2011 [facility] Robitussin D Route: PO, Q4H, PRN Cough, STAT, Start date: 10/19/11 1:06:00, Duration: 30 day, Stop date: 11/18/11 1:05:00 PO No Longer Active [facility] 10/19/2011 [facility] Saline Flush 0.9% 5 ml, Route: IVP, Drug Form: INJ, Q12H, Start date: 10/18/11 21:00:00, Duration: 30 day, Stop date: 11/17/11 9:00:00 IVP No Longer Active [facility] 10/19/2011 [facility] DuoNeb inhalation solution 3 ml, Route: INHALATION, Drug Form: SOLN, Q6H, PRN as needed for shortness of breath or wheezing, Start date: 10/18/11 17:42:00, Duration: 30 day, Stop date: 11/17/11 17:41:00 INHALATION No Longer Active [facility] 10/18/2011 [facility] [place] 5/325 oral tablet 1 tab, Route: PO, Drug Form: TAB, Q6H, PRN Pain, Start date: 10/18/11 17:41:00, Duration: 30 day, Stop date: 11/17/11 17:40:00 PO No Longer Active [facility] 10/18/2011 [facility] Tylenol 650 mg, 2 tab, Route: PO, Drug form: TAB, Q6H, PRN Pain, Start date: 10/18/11 17:41:00, Duration: 30 day, Stop date: 11/17/11 17:40:00 PO No Longer Active [facility] 10/18/2011 [facility] morphine Sulfate 2 mg, 1 mL, Route: IVP, Drug form: INJ, Q4H, PRN Pain, Start date: 10/18/11 17:41:00, Duration: 30 day, Stop date: 11/17/11 17:40:00 IVP No Longer Active [facility] 10/18/2011 [facility] Saline Flush 0.9% 5 ml, Route: IVP, Drug Form: INJ, PRN, PRN Line Flush, Start date: 10/18/11 17:39:00, Duration: 30 day, Stop date: 11/17/11 17:38:00 IVP No Longer Active [facility] 10/18/2011 [facility] nitroglycerin SL Tab 0.4 mg, 1 tab, Route: SL, Drug form: TAB, Q5Min, PRN Chest Pain, Start date: 10/18/11 17:39:00, Duration: 3 doses or times, Stop date: Limited # of times SL No Longer Active [facility] 10/18/2011 [facility] morphine Sulfate 2 mg, 1 mL, Route: IVP, Drug form: INJ, Q15Min, PRN Chest Pain, Start date: 10/18/11 17:39:00, Duration: 2 doses or times, Stop date: Limited # of times IVP No Longer Active [facility] 10/18/2011 [facility] ondansetron 4 mg, 2 mL, Route: IVP, Drug form: INJ, Q8H, PRN Nausea & Vomiting, Start date: 10/18/11 17:39:00, Duration: 30 day, Stop date: 11/17/11 17:38:00 IVP No Longer Active [facility] 10/18/2011 [facility] Multivitamin Adult as directed Orally Active - Orally [facility] Vitamin B-12 1 tablet Orally Active 1000 MCG Orally Once a day [facility] Ursodiol as directed Orally Active 300 MG Orally BID [facility] Calcium Carbonate as directed Orally Active 600 MG Orally BID [facility] Vitamin E 1 capsule Orally Active 400 UNIT Orally Once a day [facility]ovascular Atenolol 1 tablet Orally Active 50 MG Orally Once a day [facility] Allergies, Adverse Reactions, Alerts Substance Category Reaction Severity Reaction type Status Date Reported Comments Source N.K.D.A. Adverse Reaction Info Not Available Adverse Reaction Active 12/04/2018 [facility] Immunizations No Data Provided for This Section Results Order Name Results Value Reference Range Date Interpretation Comments Source CHEMISTRY CK MB Index <0.4 0.0 - 2.5 10/19/2011 Normal [facility] CHEMISTRY CK MB <0.5 0.5 - 3.6 10/19/2011 Normal [facility] CHEMISTRY LDL 107 0 - 129 10/19/2011 Normal [facility] CHEMISTRY HDL 80 >=35 10/19/2011 Normal [facility] CHEMISTRY Chol 196 120 - 200 10/19/2011 Normal [facility] CHEMISTRY Trig 47 0 - 200 10/19/2011 Normal [facility] CHEMISTRY CHD Risk 2.45 3.90 - 5.80 10/19/2011 LOW [facility] CHEMISTRY AGAP 14.2 10.0 - 20.0 10/19/2011 Normal [facility] CHEMISTRY Creatinine Lvl 0.7 0.5 - 1.4 10/19/2011 Normal [facility] CHEMISTRY Potassium Lvl 4.2 3.5 - 5.1 10/19/2011 Normal [facility] CHEMISTRY Chloride Lvl 104 95 - 109 10/19/2011 Normal [facility] CHEMISTRY Sodium Lvl 140 135 - 145 10/19/2011 Normal [facility] CHEMISTRY Glucose Lvl 128 70 - 99 10/19/2011 [facility] <sup>1</sup>Interpretive Data: Adult reference range values reflect the clinical guidelines of the [place] [employer]. [facility] CHEMISTRY BUN 11 7 - 22 10/19/2011 Normal [facility] CHEMISTRY CO2 26 24 - 32 10/19/2011 Normal [facility] CHEMISTRY Calcium Lvl 9.5 8.5 - 10.5 10/19/2011 Normal [facility] CHEMISTRY Total CK 140 12 - 191 10/19/2011 Normal [facility] CHEMISTRY Troponin-I <0.02 0.00 - 0.40 10/19/2011 Normal [facility] HEMATOLOGY Segs 83.7 45.0 - 75.0 10/19/2011 HI [facility] HEMATOLOGY Lymphocytes 11.3 20.0 - 40.0 10/19/2011 LOW [facility] HEMATOLOGY Monocytes 4.4 2.0 - 12.0 10/19/2011 Normal [facility] HEMATOLOGY Eosinophils 0.4 0.0 - 4.0 10/19/2011 Normal [facility] HEMATOLOGY Eosinophils # 0.0 0.0 - 0.5 10/19/2011 Normal [facility] HEMATOLOGY Basophils # 0.0 0.0 - 0.2 10/19/2011 Normal [facility] HEMATOLOGY Lymphocytes # 1.3 1.0 - 5.5 10/19/2011 Normal [facility] HEMATOLOGY Monocytes # 0.5 0.0 - 0.8 10/19/2011 [facility] HEMATOLOGY Basophils 0.2 0.0 - 1.0 10/19/2011 Normal [facility] HEMATOLOGY Segs-Bands # 9.5 1.5 - 8.1 10/19/2011 HI [facility] HEMATOLOGY RBC 3.90 4.20 - 5.40 10/19/2011 LOW [facility] HEMATOLOGY Hgb 12.0 12.0 - 16.0 10/19/2011 Normal [facility] HEMATOLOGY WBC 11.4 3.7 - 10.4 10/19/2011 HI [facility] HEMATOLOGY MCH 30.8 27.0 - 31.0 10/19/2011 Normal [facility] HEMATOLOGY MCV 91.7 81.0 - 99.0 10/19/2011 Normal [facility] HEMATOLOGY Hct 35.8 36.0 - 48.0 10/19/2011 LOW [facility] HEMATOLOGY MPV 12.1 7.4 - 10.4 10/19/2011 [facility] HEMATOLOGY MCHC 33.6 32.0 - 36.0 10/19/2011 Normal [facility] HEMATOLOGY Platelet 135 133 - 450 10/19/2011 Normal [facility] HEMATOLOGY RDW 13.3 11.5 - 14.5 10/19/2011 Normal [facility] CHEMISTRY CK MB Index 0.4 0.0 - 2.5 10/19/2011 Normal [facility] CHEMISTRY CK MB 0.7 0.5 - 3.6 10/19/2011 Normal [facility] CHEMISTRY BNP 92 <=100 10/19/2011 Normal <sup>2</sup>Interpretive Data: Elevated results are in line with increasing severity of congestive heart failure. Minor elevations between 100 and 300 may be seen with Myocardial Ischemia, Sodium retaining drugs, and compensated/treated heart failure. [facility] CHEMISTRY Troponin-I <0.02 0.00 - 0.40 10/19/2011 Normal [facility] CHEMISTRY Total CK 169 12 - 191 10/19/2011 Normal [facility] HEMATOLOGY Platelet 132 133 - 450 10/18/2011 LOW [facility] HEMATOLOGY MCH 30.7 27.0 - 31.0 10/18/2011 Normal [facility] HEMATOLOGY RDW 13.0 11.5 - 14.5 10/18/2011 Normal [facility] HEMATOLOGY MCV 91.4 81.0 - 99.0 10/18/2011 Normal [facility] HEMATOLOGY MCHC 33.6 32.0 - 36.0 10/18/2011 Normal [facility] HEMATOLOGY MPV 12.7 7.4 - 10.4 10/18/2011 [facility] HEMATOLOGY Hct 36.8 36.0 - 48.0 10/18/2011 Normal [facility] HEMATOLOGY WBC 13.9 3.7 - 10.4 10/18/2011 [facility] HEMATOLOGY RBC 4.03 4.20 - 5.40 10/18/2011 LOW [facility] HEMATOLOGY Hgb 12.4 12.0 - 16.0 10/18/2011 Normal [facility] HEMATOLOGY Monocytes 11.7 2.0 - 12.0 10/18/2011 Normal [facility] HEMATOLOGY Lymphocytes 23.6 20.0 - 40.0 10/18/2011 Normal [facility] HEMATOLOGY Segs 61.5 45.0 - 75.0 10/18/2011 Normal [facility] HEMATOLOGY Plt Morph Normal (10/18/2011 16:30:00) 10/18/2011 Normal [facility] HEMATOLOGY RBC Morph Normal (10/18/2011 16:30:00) 10/18/2011 Normal [facility] HEMATOLOGY Monocytes # 1.6 0.0 - 0.8 10/18/2011 [facility] HEMATOLOGY Lymphocytes # 3.3 1.0 - 5.5 10/18/2011 Normal [facility] HEMATOLOGY Segs-Bands # 8.6 1.5 - 8.1 10/18/2011 [facility] HEMATOLOGY Basophils 0.3 0.0 - 1.0 10/18/2011 Normal [facility] HEMATOLOGY Eosinophils 2.9 0.0 - 4.0 10/18/2011 Normal [facility] HEMATOLOGY Basophils # 0.0 0.0 - 0.2 10/18/2011 Normal [facility] HEMATOLOGY Eosinophils # 0.4 0.0 - 0.5 10/18/2011 Normal [facility] Pathology Reports No Data Provided for This Section Diagnostic Reports Report Value Date Source Elbow 3 views DX Study: Left elbow, 3 views Clinical Indication: Left elbow pain status post fall Comparison: None FINDINGS: Multiple views of the left elbow show no acute bony fracture or joint dislocation. Soft tissues are unremarkable. IMPRESSION: No acute bony abnormality of the left elbow. SL: [id number] 07/28/2017 [facility] Shoulder series DX Study: Left shoulder, 3 views Clinical Indication: Left shoulder pain post fall Comparison: None FINDINGS: Multiple views of the left shoulder show no acute bony fracture or joint dislocation. Mild AC joint osteoarthrosis is seen. Soft tissues are unremarkable. IMPRESSION: No acute bony abnormality of the left shoulder. SL: [id number] 07/28/2017 [facility] Consultation Notes No Data Provided for This Section Discharge Summaries No Data Provided for This Section History and Physicals No Data Provided for This Section Vital Signs Vital Sign Value Date Comments Source Weight 166.8 12/04/2018 [facility] Height 62 12/04/2018 [facility] Heart Rate 60 12/04/2018 [facility] Diastolic (mm Hg) 70 12/04/2018 [facility] Systolic (mm Hg) 112 12/04/2018 [facility] Temperature Oral (F) 98.0 F 07/29/2017 [facility] Heart Rate 68 07/29/2017 [facility] Systolic (mm Hg) 138 07/29/2017 [facility] Diastolic (mm Hg) 80 07/29/2017 [facility] Respitory Rate 17 07/29/2017 [facility] Weight 75 07/28/2017 [facility] BMI Calculated 28.38 07/28/2017 [facility] Height 162.56 cm 07/28/2017 [facility] Systolic (mm Hg) 155 07/28/2017 [facility] Diastolic (mm Hg) 89 07/28/2017 [facility] Heart Rate 59 07/28/2017 [facility] Respitory Rate 18 07/28/2017 [facility] Temperature Oral (F) 97.5 F 07/28/2017 [facility] Temperature Oral (F) 97.9 F 10/19/2011 [facility] Respitory Rate 20 10/19/2011 [facility] Heart Rate 82 10/19/2011 [facility] Diastolic (mm Hg) 74 10/19/2011 [facility] Systolic (mm Hg) 119 10/19/2011 [facility] Systolic (mm Hg) 121 10/19/2011 [facility] Heart Rate 76 10/19/2011 [facility] Respitory Rate 20 10/19/2011 [facility] Temperature Oral (F) 97.8 F 10/19/2011 [facility] Diastolic (mm Hg) 71 10/19/2011 [facility] Systolic (mm Hg) 130 10/19/2011 [facility] Diastolic (mm Hg) 77 10/19/2011 [facility] Heart Rate 74 10/19/2011 [facility] Respitory Rate 20 10/19/2011 [facility] Temperature Oral (F) 97.5 F 10/19/2011 [facility] Weight 79.545 10/19/2011 [facility] Height 167.64 cm 10/19/2011 [facility] Encounters Location Location Details Encounter Type Encounter Number Reason For Visit Attending Provider ADM Date DC Date Status Source [facility] OU [id number] BRONCHITIS, CHF, CP ELLEN CLIFFORD 10/18/2011 10/19/2011 Active [facility] [id number] Fadia Peng 07/28/2017 07/29/2017 [facility] Procedures Procedure Code Date Perfomer Comments Source section [id number] [facility] Assessment and Plan No Data Provided for This Section Plan of Care No Data Provided for This Section Social History Social History Date Source Social History TypeResponse Smoking Status Never smoker; Exposure to Tobacco Smoke None; Cigarette Smoking Last 365 Days No; Reg Smoking Cessation Counseling No entered on: 07/28/17 07/29/2017 [facility] Family History No Data Provided for This Section Advance Directives No Data Provided for This Section Functional Status No Data Provided for This Section
--- OUTSIDE RECORDS SUMMARY | 2019-01-29 05:35 | XMS REPORT ---
Author Author Claudia Nielsen Organization [employer] Address Unknown Phone Unavailable Care Team Providers Care Crystal Report Developer Name Role Phone Claudia Nielsen CP Unavailable [...] Date End Date Status Dosage Vitamin E [facility] 43150271279 400 UNIT Orally Once a day Active 1 capsule Multivitamin Adult [facility] 86859748598 - Orally Active as directed Ursodiol [facility] 83855920953 300 MG Orally BID Active as directed Calcium Carbonate [facility] 51049737234 600 MG Orally BID Active as directed Vitamin B-12 [facility] 28177909958 1000 MCG Orally Once a day Active 1 tablet Atenolol [facility] 46792668770 50 MG Orally Once a day Active 1 tablet Results No Known Results Summary Purpose eClinicalWorks Submission
--- OUTSIDE RECORDS SUMMARY | 2019-01-29 05:35 | XMS REPORT ---
Author Author Claudia Nielsen Organization [employer] Address Unknown Phone Unavailable Care Team Providers Care Grommet Worker Name Role Phone Claudia Nielsen CP Unavailable Allergies, Adverse Reactions, Alerts Substance Reaction Event Type N.K.D.A. Info Not Available Non Drug Allergy Problems Problem Type Condition Code Onset Dates Condition Status Assessment Encounter for preprocedural cardiovascular examination Z01.810 Active Problem HTN (hypertension), benign I10 Active Assessment SOB (shortness of breath) R06.02 Active Assessment Chest pain at rest R07.9 Active Assessment HTN (hypertension), benign I10 Active Medications Medication Code System Code Instructions Start Date End Date Status Dosage Multivitamin Adult [facility] 87625901350 - Orally Active as directed Vitamin B-[address] [facility] 67058488943 1000 MCG Orally Once a day Active 1 tablet Calcium Carbonate [facility] 17680749925 600 MG Orally BID Active as directed Vitamin E [facility] 16364462052 400 UNIT Orally Once a day Active 1 capsule Atenol[address] [facility] 22204128213 50 MG Orally Once a day Active 1 tablet Ursodiol [facility] 74562070455 300 MG Orally BID Active as directed Vital Signs Date/Time: December 04, 2018 BMI 30.50 Index Weight 166.8 lbs Height 62 in Cardiac Monitoring Heart Rate 60 /min Blood Pressure Diastolic 70 mm Hg Blood Pressure Systolic 112 mm Hg Results No Known Results Summary Purpose eClinicalWorks Submission
--- OUTSIDE RECORDS SUMMARY | 2019-01-29 05:35 | XMS REPORT ---
Author Author Claudia Nielsen Organization [employer] Address Unknown Phone Unavailable Care Team Providers Care Childcare Center Director Name Role Phone Claudia Nielsen CP Unavailable [...] Date End Date Status Dosage Multivitamin Adult [facility] 18594816891 - Orally Active as directed Vitamin B-12 [facility] 95847360776 1000 MCG Orally Once a day Active 1 tablet Ursodiol [facility] 70344424770 300 MG Orally BID Active as directed Calcium Carbonate [facility] 52238842757 600 MG Orally BID Active as directed Vitamin E [facility] 45511524337 400 UNIT Orally Once a day Active 1 capsule Atenolol [facility] 14197551413 50 MG Orally Once a day Active 1 tablet Results No Known Results Summary Purpose [employer]ClinicalWorks Submission
--- OUTSIDE RECORDS SUMMARY | 2019-01-29 05:35 | XMS REPORT | CCD ---
Author Author Auto Generated Organization [facility] Address Unknown Phone Unavailable Care Team Providers Care Gallery Manager Name Role Phone Martin Horton CP Physician, Non Associated RP Unavailable Allergies, Adverse Reactions, Alerts Substance Reaction Status NKDA Active Problem List Condition Effective Dates Status Chest pain Active Cough Active Shortness of breath Active Medications Medication Instructions Start Date End Date Status SoluMedrol 40 mg, 1 mL, Route: IV, Drug form: 10/19/2011 10/19/2011 Completed INJ, ONCE, Start date: 10/19/11 1:07:00, Stop date: 10/19/11 1:07:00 Koko Lau Route: PO, Q4H, PRN Cough, STAT, 10/19/2011 10/19/2011 Discontinued Start date: 10/19/11 1:06:00, Duration: 30 day, Stop date: 11/18/11 1:05:00 albuterol 0.083% 2.49 mg, 3 mL, Route: INHALATION, 10/19/2011 10/19/2011 Discontinued inhalation solution Drug form: SOLN, RQ4H, Start date: 10/19/11 3:00:00, Duration: 30 day, Stop date: 11/17/11 23:00:00 Saline Flush 0.9% 5 ml, Route: IVP, Drug Form: INJ, 10/18/2011 10/19/2011 Discontinued PRN, PRN Line Flush, Start date: 10/18/11 17:39:00, Duration: 30 day, Stop date: 11/17/11 17:38:00 Saline Flush 0.9% 5 ml, Route: IVP, Drug Form: INJ, 10/18/2011 10/19/2011 Discontinued Q12H, Start date: 10/18/11 21:00:00, Duration: 30 day, Stop date: 11/17/11 9:00:00 Saline Flush 0.9% 5 ml, Route: IVP, Drug Form: INJ, 10/18/2011 10/19/2011 Discontinued PRN, PRN Line Flush, Start date: 10/18/11 17:39:00, Duration: 30 day, Stop date: 11/17/11 17:38:00 aspirin 325 mg, 1 tab, Route: PO, Drug 10/19/2011 10/19/2011 Discontinued form: TAB, Daily, Start date: 10/19/11 9:00:00, Duration: 30 day, Stop date: 11/17/11 9:00:00 nitroglycerin SL Tab 0.4 mg, 1 tab, Route: SL, Drug 10/18/2011 10/19/2011 Discontinued form: TAB, Q5Min, PRN Chest Pain, Start date: 10/18/11 17:39:00, Duration: 3 doses or times, Stop date: Limited # of times morphine Sulfate 2 mg, 1 mL, Route: IVP, Drug form: 10/18/2011 10/19/2011 Discontinued INJ, Q15Min, PRN Chest Pain, Start date: 10/18/11 17:39:00, Duration: 2 doses or times, Stop date: Limited # of times ondansetron 4 mg, 2 mL, Route: IVP, Drug form: 10/18/2011 10/19/2011 Discontinued INJ, Q8H, PRN Nausea & Vomiting, Start date: 10/18/11 17:39:00, Duration: 30 day, Stop date: 11/17/11 17:38:00 Robitussin-AC oral 5 ml, PO, Q4H, PRN, 75 mL, for 10/19/2011 Ordered syrup cough, Substitution Allowed, Maintenance, SYRP Azithromycin 5 Day See Instructions, 1 pkg, 10/19/2011 Ordered Dose Pack 250 mg Substitution Allowed, as directed oral tablet on package labeling as directed on package labeling azithromycin 500 mg, 250 mL, Route: IVPB, Drug 10/19/2011 10/19/2011 Discontinued form: PDR/INJ, [id number], Start date: 10/19/11 11:00:00, Duration: 30 day, Stop date: 11/17/11 11:00:00 Rocephin 1 gm, Route: IVPB, [id number], Start 10/19/2011 10/19/2011 Discontinued date: 10/19/11 11:00:00, Duration: 30 day, Stop date: 11/17/11 11:00:00 albuterol 90 mcg/inh 1- 2 puff, INHALATION, QID, PRN, 1 10/19/2011 Ordered inhalation aerosol unit, wheezing, Substitution Allowed, Maintenance Robitussin-DM 10 mL, Route: PO, Drug Form: SYRP, 10/19/2011 10/19/2011 Discontinued Q4H, PRN as needed for cough, Start date: 10/19/11 1:14:00, Duration: 30 day, Stop date: 11/18/11 1:13:00 DuoNeb inhalation 3 ml, Route: INHALATION, Drug Form: 10/18/2011 10/19/2011 Discontinued solution SOLN, Q6H, PRN as needed for shortness of breath or wheezing, Start date: 10/18/11 17:42:00, Duration: 30 day, Stop date: 11/17/11 17:41:00 Eldridge 5/325 oral 1 tab, Route: PO, Drug Form: TAB, 10/18/2011 10/19/2011 Discontinued tablet Q6H, PRN Pain, Start date: 10/18/11 17:41:00, Duration: 30 day, Stop date: 11/17/11 17:40:00 Tylenol 650 mg, 2 tab, Route: PO, Drug 10/18/2011 10/19/2011 Discontinued form: TAB, Q6H, PRN Pain, Start date: 10/18/11 17:41:00, Duration: 30 day, Stop date: 11/17/11 17:40:00 morphine Sulfate 2 mg, 1 mL, Route: IVP, Drug form: 10/18/2011 10/19/2011 Discontinued INJ, Q4H, PRN Pain, Start date: 10/18/11 17:41:00, Duration: 30 day, Stop date: 11/17/11 17:40:00 iron sulfate Substitution Allowed 10/19/2011 Ordered (ferrous sulfate) 325 mg oral tablet metoprolol tartrate 25 mg, 1 tab, Route: PO, Drug form: 10/19/2011 10/19/2011 Discontinued TAB, BID, first dose now, Start date: 10/19/11 9:00:00, Duration: 30 day, Stop date: 11/17/11 17:00:00 penicillin V Substitution Allowed 10/19/2011 Ordered potassium 500 mg oral tablet Nyquil Cold & Flu Substitution Allowed, Maintenance 10/19/2011 Ordered Vital Signs Most recent to oldest [Reference Range]: 1 2 3 Height 167.64 cm (10/18/2011 20:32:00) Temperature Oral [96.4-99.1 DegF] 97.9 DegF (10/19/2011 16:00:00) 97.8 DegF (10/19/2011 12:00:00) 97.5 DegF (10/19/2011 08:00:00) Systolic Blood Pressure [90-140 mmHg] 119 mmHg (10/19/2011 16:00:00) 121 mmHg (10/19/2011 12:00:00) 130 mmHg (10/19/2011 08:00:00) Diastolic Blood Pressure [60-90 mmHg] 74 mmHg (10/19/2011 16:00:00) 71 mmHg (10/19/2011 12:00:00) 77 mmHg (10/19/2011 08:00:00) Respiratory Rate [14-20 BRMIN] 20 BRMIN (10/19/2011 16:00:00) 20 BRMIN (10/19/2011 12:00:00) 20 BRMIN (10/19/2011 08:00:00) Peripheral Pulse Rate [60-100 bpm] 82 bpm (10/19/2011 16:00:00) 76 bpm (10/19/2011 12:00:00) 74 bpm (10/19/2011 08:00:00) Weight 79.545 kg (10/18/2011 20:32:00) Results CHEMISTRY Most recent to oldest [Reference Range]: 1 2 Sodium Lvl [135-145 mEq/L] 140 mEq/L (10/19/2011 04:41:00) Potassium Lvl [3.5-5.1 mEq/L] 4.2 mEq/L (10/19/2011 04:41:00) Chloride Lvl [95-109 mEq/L] 104 mEq/L (10/19/2011 04:41:00) CO2 [24-32 mEq/L] 26 mEq/L (10/19/2011 04:41:00) AGAP [10.0-20.0 mEq/L] 14.2 mEq/L (10/19/2011:41:00) Creatinine Lvl [0.5-1.4 mg/dL] 0.7 mg/dL (10/19/2011:41:00) BUN [7-22 mg/dL] 11 mg/dL (10/19/2011::00) Glucose Lvl [70-99 mg/dL] 128 mg/dL 1 *HI* (10/19/2011::00) Calcium Lvl [8.5-10.5 mg/dL] 9.5 mg/dL (10/19/2011::00) Total CK [12-191 U/L] 140 U/L (10/19/2011::00) 169 U/L (10/18/2011:31:00) CK MB [0.5-3.6 ng/mL] <0.5 ng/mL (10/19/2011::) 0.7 ng/mL (10/18/2011:31:00) CK MB Index [0.0-2.5] <0.4 (10/19/2011::00) 0.4 (10/18/2011::00) Troponin-I [0.00-0.40 ng/mL] <0.02 ng/mL (10/19/2011::00) <0.02 ng/mL (10/18/2011:31:00) BNP [<=100 pg/mL] 92 pg/mL 2 (10/18/2011:31:00) CHD Risk [3.90-5.80] 2.45 *LOW* (10/19/2011::00) Chol [120-200 mg/dL] 196 mg/dL (10/19/2011::00) Trig [0-200 mg/dL] 47 mg/dL (10/19/2011:41:00) HDL [>=35 mg/dL] 80 mg/dL (10/19/2011:41:00) LDL [0-129 mg/dL] 107 mg/dL (10/19/2011:41:00) 1Interpretive Data: Adult reference range values reflect the clinical guidelinesof the [place] [employer]. 2Interpretive Data: Elevated results are in line with increasing severity of congestive heart failure. Minor elevations between 100 and 300 may be seen with Myocardial Ischemia, Sodium retaining drugs, and compensated/treated heart failure. HEMATOLOGY Most recent to oldest [Reference Range]: 1 2 WBC [3.7-10.4 K/CMM] 11.4 K/CMM *HI* (10/19/2011 04:41:00) 13.9 K/CMM *HI* (10/18/2011 16:30:00) RBC [4.20-5.40 M/CMM] 3.90 M/CMM *LOW* (10/19/2011 04:41:00) 4.03 M/CMM *LOW* (10/18/2011 16:30:00) Hgb [12.0-16.0 g/dL] 12.0 g/dL (10/19/2011 04:41:00) 12.4 g/dL (10/18/2011 16:30:00) Hct [36.0-48.0 %] 35.8 % *LOW* (10/19/2011 04:41:00) 36.8 % (10/18/2011 16:30:00) MCV [81.0-99.0 fL] 91.7 fL (10/19/2011 04:41:00) 91.4 fL (10/18/2011 16:30:00) MCH [27.0-31.0 pg] 30.8 pg (10/19/2011 04:41:00) 30.7 pg (10/18/2011 16:30:00) MCHC [32.0-36.0 g/dL] 33.6 g/dL (10/19/2011 04:41:00) 33.6 g/dL (10/18/2011 16:30:00) RDW [11.5-14.5 %] 13.3 % (10/19/2011 04:41:00) 13.0 % (10/18/2011 16:30:00) Platelet [133-450 K/CMM] 135 K/CMM (10/19/2011 04:41:00) 132 K/CMM *LOW* (10/18/2011 16:30:00) MPV [7.4-10.4 fL] 12.1 fL *HI* (10/19/2011 04:41:00) 12.7 fL *HI* (10/18/2011 16:30:00) Segs [45.0-75.0 %] 83.7 % *HI* (10/19/2011 04:41:00) 61.5 % (10/18/2011 16:30:00) Lymphocytes [20.0-40.0 %] 11.3 % *LOW* (10/19/2011 04:41:00) 23.6 % (10/18/2011 16:30:00) Monocytes [2.0-12.0 %] 4.4 % (10/19/2011 04:41:00) 11.7 % (10/18/2011 16:30:00) Eosinophils [0.0-4.0 %] 0.4 % (10/19/2011 04:41:00) 2.9 % (10/18/2011 16:30:00) Basophils [0.0-1.0 %] 0.2 % (10/19/2011 04:41:00) 0.3 % (10/18/2011 16:30:00) Segs-Bands # [1.5-8.1 K/CMM] 9.5 K/CMM *HI* (10/19/2011 04:41:00) 8.6 K/CMM *HI* (10/18/2011 16:30:00) Lymphocytes # [1.0-5.5 K/CMM] 1.3 K/CMM (10/19/2011 04:41:00) 3.3 K/CMM (10/18/2011 16:30:00) Monocytes # [0.0-0.8 K/CMM] 0.5 K/CMM (10/19/2011 04:41:00) 1.6 K/CMM *HI* (10/18/2011 16:30:00) Eosinophils # [0.0-0.5 K/CMM] 0.0 K/CMM (10/19/2011 04:41:00) 0.4 K/CMM (10/18/2011 16:30:00) Basophils # [0.0-0.2 K/CMM] 0.0 K/CMM (10/19/2011 04:41:00) 0.0 K/CMM (10/18/2011 16:30:00) RBC Morph Normal (10/18/2011 16:30:00) Plt Morph Normal (10/18/2011 16:30:00)
--- OUTSIDE RECORDS SUMMARY | 2019-01-29 05:35 | XMS REPORT ---
Author Author [facility] Address Unknown Phone Unavailable Care Team Providers Care Control Panel Operator Crude Unit Name Role Phone JEREMIAS BRIGGS Chip Unavailable Unavailable REBECCA LUCIA Unavailable Unavailable Problems This patient has no known problems. Allergies, Adverse Reactions, Alerts This patient has no known allergies or adverse reactions. Medications This patient has no known medications. Results Test Description Test Time Test Comments Text Results Atomic Results Result Comments CBC W/PLT COUNT & AUTO DIFFERENTIAL 2018-08-14 13:32:00 WHITE BLOOD CELL COUNT (BEAKER) (test wjfc=348) 4.8 K/ L 3.5-10.5 RED BLOOD CELL COUNT (BEAKER) (test twsa=084) 4.06 M/ L 3.93-5.22 HEMOGLOBIN (BEAKER) (test niyc=727) 12.5 GM/DL 11.2-15.7 HEMATOCRIT (BEAKER) (test foog=509) 39.0 % 34.1-44.9 MEAN CORPUSCULAR VOLUME (BEAKER) (test naeo=049) 96.1 fL 79.4-94.8 MEAN CORPUSCULAR HEMOGLOBIN (BEAKER) (test hyze=694) 30.8 pg 25.6-32.2 MEAN CORPUSCULAR HEMOGLOBIN CONC (BEAKER) (test jyrs=728) 32.1 GM/DL 32.2-35.5 RED CELL DISTRIBUTION WIDTH (BEAKER) (test mmig=112) 12.0 % 11.7-14.4 PLATELET COUNT (BEAKER) (test ukec=183) 97 K/CU MM 150-450 MEAN PLATELET VOLUME (BEAKER) (test qhpy=843) 13.5 fL 9.4-12.3 NUCLEATED RED BLOOD CELLS (BEAKER) (test wzun=390) 0 /100 WBC 0-0 NEUTROPHILS RELATIVE PERCENT (BEAKER) (test fyko=015) 35 % LYMPHOCYTES RELATIVE PERCENT (BEAKER) (test bvcs=449) 51 % MONOCYTES RELATIVE PERCENT (BEAKER) (test qpjc=943) 11 % EOSINOPHILS RELATIVE PERCENT (BEAKER) (test xlbv=685) 3 % BASOPHILS RELATIVE PERCENT (BEAKER) (test ejcr=193) 1 % NEUTROPHILS ABSOLUTE COUNT (BEAKER) (test wvnc=657) 1.64 K/ L 1.56-6.13 LYMPHOCYTES ABSOLUTE COUNT (BEAKER) (test ipew=774) 2.43 K/ L 1.18-3.74 MONOCYTES ABSOLUTE COUNT (BEAKER) (test ensm=031) 0.51 K/ L 0.24-0.36 EOSINOPHILS ABSOLUTE COUNT (BEAKER) (test bpqd=602) 0.14 K/ L 0.04-0.36 BASOPHILS ABSOLUTE COUNT (BEAKER) (test kayx=863) 0.04 K/ L 0.01-0.08 IMMATURE GRANULOCYTES-RELATIVE PERCENT (BEAKER) (test vwqd=4717) 0 % 0-1 PROTHROMBIN [id number] 13:29:00* Test Item Value Reference Range Comments PROTIME (BEAKER) (test bzbb=620) 12.4 seconds 11.7-14.7 INR (BEAKER) (test iztx=119) 0.9 <=5.9 RECOMMENDED COUMADIN/WARFARIN INR THERAPY RANGESSTANDARD DOSE: 2.0 - 3.0 Inclu cynthia: PROPHYLAXIS for venous thrombosis, systemic embolization; TREATMENT for mane ous thrombosis and/or pulmonary embolus.HIGH RISK: Target INR is 2.5-3.5 for pat ients with mechanical heart valves.PLATELET [id number] 11:28:00* Test Item Value Reference Range Comments PLATELET COUNT (BEAKER) (test ckqh=843) 115 K/CU MM 150-450 PLATELET [id number] 15:14:00* Test Item Value Reference Range Comments PLATELET COUNT (BEAKER) (test lobt=913) 106 K/CU MM 150-450 Citrate platlet [id number] 13:10:00* Test Item Value Reference Range Comments D-DIMER QUANTITATIVE (BEAKER) (test suty=400) < MG/L FEU <0.50 Intended Use: The D-Dimer Assay can be used to aid in the diagnosis of Deep Vein Thrombosis (DVT) and Pulmonary Embolism Disease (PED).In patients with low pre- test probability, various studies concerning STA Liatest D-dimer test have repor dl that with a cutoff value of 0.50 MG/L FEU, the Negative Predictive Value (AFFIRMATIVE ACTION OFFICER V) regarding the exclusion of thrombosis is within 95-100% range.FIBRINOGEN 2017-08-08 13:09:00* Test Item Value Reference Range Comments FIBRINOGEN LEVEL (MARIA L) (test tvpf=099) 328 mg/dl 225-434 U/S, ABDOMINAL, [id number] 11:54:00Reason for Exam:->Liver fibrosis, screnn for HCC, fatty liver, (Elastography)FINAL REPORT Ultrasound of the Abdomen, complete Clinical History: Liver fibrosis Comparison: 07/14/2015 Discussion: Sonographic evaluation of the abdomen is performed. Liver: Measures 12.8 cm in length at the right midclavicular line. Normal echogenicity. No lesion is identified by ultrasound. Main portal vein diameter measures 1.3 cm. Nodular contour of the liver. Biliary tree: Common duct measures 7 mm. No intrahepatic biliary dilatation. Gallbladder: No shadowing calculus/calculi. No wall thickening. No pericholecystic fluid. Negative sonographic Andre's sign. Pancreas: Partially visualized, unr emarkable. Ascites: None seen Spleen: Measures 9.4 cm in length. Kidneys: Right kidney measures 11.2 x 3.6 x 4.4 cm. Left kidney measures 12.2 x 6.1 x 5 cm. Normal cortical echogenicity. No shadowing calculus, no hydronephrosis. IVC/Aorta: Segments partially seen. Elastography performed in the liver. Ave rage ShearWave velocity is 1.36 m/s, corresponding to F0-F1/normal-mild fibrosis . Impression: Cirrhotic morphology of the liver. No focal liver lesion identifie d. No significant ascites. Elastography performed in the liver. Average ShearWav e velocity is 1.36 m/s, corresponding to F0-F1/normal-mild fibrosis. Signed: Zackary Quiñones MDReport Verified Date/Time: 02/24/2017 11:54:36 Reading Location: [address] Radiology Reading Room
--- OUTSIDE RECORDS SUMMARY | 2019-01-29 05:35 | XMS REPORT | Summary of Care ---
Author Author [facility] Organization [facility] Address Unknown Phone Unavailable Encounter HQ Foster(FIN) [id number] Date(s): 07/28/17 - 07/28/17 [facility] [address] [place] [address]- Encounter Diagnosis Pain in left shoulder (Final) - 08/03/17 Inflammatory liver disease, unspecified (Final) - Fall on same level from slipping, tripping and stumbling without subsequent stri aram against object, initial encounter (Final) - Shoulder pain, left (Discharge Diagnosis) - 07/28/17 Fall (Discharge Diagnosis) - 07/28/17 Discharge Disposition: Home or Self Care Attending Physician: Fadia Peng DO Vital Signs Most recent to 1 2 oldest [Reference Range]: Height 162.56 cm (07/28/17 2:18 PM) Temperature Oral 98.0 DegF 97.5 DegF [96.4-99.1 DegF] (07/28/17 7:35 PM) (07/28/17 2:18 PM) Blood Pressure 138/80 mmHg 155/89 mmHg [90-140/60-90 mmHg] (07/28/17 7:35 PM) *HI* (07/28/17 2:18 PM) Respiratory Rate 17 BRMIN 18 BRMIN [14-20 BRMIN] (07/28/17 7:35 PM) (07/28/17 2:18 PM) Peripheral Pulse 68 bpm 59 bpm Rate [60-100 bpm] (07/28/17 7:35 PM) *LOW* (07/28/17 2:18 PM) Weight 75 kg (07/28/17 2:18 PM) Body Mass Index 28.38 m2 (07/28/17 2:18 PM) Problem List Condition Effective Dates Status Health Status Informant Chest Active pain(Confirmed) Cough(Confirmed) Active Shortness of Active breath(Confirmed) Allergies, Adverse Reactions, Alerts Substance Reaction Severity Status NKDA Active Medications acetaminophen 650 mg, 1 supp, Route: W[place], Drug form: SUPP, ONCE, Dosing Weight 75, kg, Priority : STAT, Start date: 07/28/17 19:39:00 BOX CHIPPER, Stop date: 07/28/17 19:39:00 BOX CHIPPER Notes: Max wzynfiyyychtl=6302 mg/day (4 gm/day). (Same as: Tylenol) Start Date: 07/28/17 Stop Date: 07/28/17 Status: Discontinued tramadol 50 mg oral tablet 50 mg=1 tab, PO, Q6H, PRN Pain, X 3 day, # 12 tab, 0 Refill(s) Start Date: 07/28/17 Stop Date: 07/31/17 Status: Completed Tylenol 650 mg, 2 tab, Route: PO, Drug form: TAB, ONCE, Dosing Weight 75, kg, Priority: STAT, Start date: 07/28/17 20:20:00 BOX CHIPPER, Stop date: 07/28/17 20:20:00 BOX CHIPPER Notes: Do not exceed 4 gm/day. (Same as: Tylenol) Start Date: 07/28/17 Stop Date: 07/28/17 Status: Completed Results No data available for this section Immunizations No data available for this section Procedures Procedure Date Related Diagnosis Body Site Status section Completed Social History Social History Type Response Smoking Status Never smoker; Exposure to Tobacco Smoke None; Cigarette Smoking Last 365 Days No; Reg Smoking Cessation Counseling No entered on: 07/28/17 Assessment and Plan No data available for this section
[~2019-01-30] VITALS: Ht 165.1 cm; Wt 79.6 kg
[2019-01-30] VITALS (7 sets, daily range): BP systolic 102–121; BP diastolic 60–71
[~2019-01-30 06:16] MED LIST changes: -ASPIRIN81 MG PO; -BACITRACIN 50,000 UNIT VIAL ONE; -BUPIVACAINE HCL 0.5% INJ 30 ML VIAL INJ ONE; +ROPIVACAINE 246.25 MG, EPINEPHRINE HCL 1:1000 1ML 0.5 MG, CLONIDINE HCL 0.08 MG, KETORO... INJ ONE; -SODIUM CHLORIDE 0.9% 500ML 500 ML ONE; -TRANEXAMIC ACID 1,000 MG/10 ML ML ONE; -VANCOMYCIN HCL 1,000 MG ONE
--- OUTSIDE RECORDS SUMMARY | 2019-01-30 06:20 | XMS REPORT | Clinical Summary ---
Author Author [facility] Address Unknown Phone Unavailable Care Team Providers Care International Account Representative Name Role Phone Althea Gentile MD PCP [...] Description Date Type Specialty Althea Gentile MD 01/29/2019 Telephone Access Althea Gentile MD 01/17/2019 Telephone Internal Medicine [...] Althea Gentile MD 11/01/2018 Refill Internal Medicine Lucai Camarena MA 09/22/2018 Orders Only Internal Medicine [...] Dx); Lipid screening declined by patient; Other fci (current) drug therapy; Encounter for screening mammogram [...] Arthur New MD 04/06/2018 Telephone Urogynecology after 01/29/2018 Immunizations Name Dates Previously Given Next Due [...] 11/22/2018 relatives? How often do you attend scientology or protestant Never 11/22/2018 services? 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 mammogram for malignant neoplasm of breast URINALYSIS, AUTOMATED Routine 04/18/2018 Essential hypertension WITH MICROSCOPY 8:52 AM CDT THYROID STIMULATING Routine 04/18/2018 Lipid screening declined HORMONE 8:52 AM CDT by patient GGT Routine 04/18/2018 Lipid screening declined 8:52 AM CDT by patient VITAMIN B12 LEVEL Routine 04/18/2018 Other fci (current) 8:52 AM CDT drug therapy LIPID [...] VOID Routine 04/17/2018 Urinary urgency RESIDUAL after 01/29/2018 Results * URINALYSIS, COMPLETE, WITH REFLEX TO CULTURE (01/04/2019 9:48 AM CDT) Color, UA YELLOW YELLOW [facility] [place] Appearance CLEAR CLEAR [facility] [place] Specific 1.009 1.001 - 1.035 [facility] gravity, urine [facility] [place] pH, urine 7.5 5.0 - 8.0 [facility] [place] Glucose, urine NEGATIVE NEGATIVE [facility] [place] Bilirubin, UA NEGATIVE NEGATIVE [facility] [place] Ketones, UA NEGATIVE NEGATIVE [facility] [place] Occult blood, NEGATIVE NEGATIVE [facility] [place] Protein, UA NEGATIVE NEGATIVE [facility] [place] Nitrite, UA NEGATIVE NEGATIVE [facility] [place] Leukocyte NEGATIVE NEGATIVE [facility] esterase, [facility]A [facility] [place] WBC, UA NONE SEEN < OR=5 /HPF [facility] [place] RBC, UA NONE SEEN < OR=2 /HPF [facility] [place] Squamous NONE SEEN < OR=5 /HPF [facility] epithelial DIAGNOSTICS cells, UA [place] Bacteria, UA NONE SEEN NONE SEEN /HPF [facility] [place] Hyaline casts, NONE SEEN NONE SEEN /LPF [facility] [place] Reflex NO CULTURE INDICATED [facility] [place] Specimen Narrative Performed At FASTING:NO [facility] FASTING: NO Resulting Agency Comment Performing Organization Information: Site ID: [id number] Name: [facility] Address: [address] [place] [phone] Director: Nicolle Edmond Performing Organization Address City/State/Zipcode [place] [address] * Partial thromboplastin time, activated (01/04/2019 9:39 AM CDT) Pathologist [facility] PTT 34 22 - 34 sec [facility] Comment: DIAGNOSTICS This test has not been SCHULTZ validated for monitoring unfractionated heparin therapy. For testing that is validated for this type of therapy, please refer to the Heparin Anti-Xa assay (test code 97320). For additional information, please refer to http://education.Runner/faq/NCE443 (This link is being provided for informational/educational purposes only.) Specimen Blood Narrative Performed At FASTING:NO [facility] FASTING: NO Resulting Agency Comment Performing Organization Information: Site ID: [id number] Name: [facility] Address: [address] [place] [phone] Director: Nicolle Edmond Performing Organization Address City/[facility] Cent[facility]ode Phone [place] [address] * Prothrombin time with INR (01/04/2019 9:39 AM CDT) INR 1.0 [facility] Comment: DIAGNOSTICS Reference [place] Range 0.9-1.1 Moderate-intensity Warfarin Therapy 2.0-3.0 Higher-intensity Warfarin Therapy 3.0-4.0 Prothrombin 10.0 9.0 - 11.5 sec [facility] time Comment: DIAGNOSTICS For more information on this [place] test, go to: http://education.Optasite/faq/ZNF248 Specimen Blood Narrative Performed At FASTING:NO [facility] FASTING: NO Resulting Agency Comment Performing Organization Information: Site ID: A Name: [facility] Address: [address] [place] [phone] Director: Nicolle Edmond Performing Organization Address [facility] Phone [place] [address] * Cv stress test (12/25/2018) Narrative Performed At * Urinalysis, automated with microscopy (12/22/2018 2:20 PM CDT) Only the most recent of 4 results within the time period is included. Color, UA YELLOW YELLOW [facility] [place] Appearance CLEAR CLEAR [facility] [place] Specific 1.010 1.001 - 1.035 [facility] gravity, urine [facility] [place] pH, urine 7.5 5.0 - 8.0 [facility] [place] Glucose, urine NEGATIVE NEGATIVE [facility] [place] Bilirubin, UA NEGATIVE NEGATIVE [facility] [place] Ketones, UA NEGATIVE NEGATIVE [facility] [place] Occult blood, NEGATIVE NEGATIVE [facility] [place] Protein, UA NEGATIVE NEGATIVE [facility] [place] Nitrite, UA NEGATIVE NEGATIVE [facility] [place] Leukocyte NEGATIVE NEGATIVE [facility] esterase, [facility] [place] WBC, UA NONE SEEN < OR=5 /HPF [facility] [place] RBC, UA NONE SEEN < OR=2 /HPF [facility] [place] Squamous 0-5 < OR=5 /HPF [facility] epithelial DIAGNOSTICS cells, UA [place] Bacteria, UA MANY (A) NONE SEEN /HPF [facility] [place] Hyaline casts, NONE SEEN NONE SEEN /LPF [facility] [place] Specimen Urine Narrative Performed At FASTING:NO [facility] FASTING: NO Resulting Agency Comment Performing Organization Information: Site ID: [id number] Name: [facility] Address: [address] [place] [phone] Director: Nicolle Edmond Performing Organization Address City/State/Zipcode Phone Number MIKE [facility] [address] [address] * Urine culture (12/22/2018 2:20 PM CDT) Only the most recent of 3 results within the time period is included. Urine culture SEE NOTE (A) [facility] Comment: DIAGNOSTICS CULTURE, URINE, ROUTINE [place] MICRO NUMBER:[id number] TEST STATUS: FINAL SPECIMEN SOURCE: URINE SPECIMEN [...] Performing Organization Information: Site ID: [id number] Name: [facility] Address: [address] [place] [phone] Director: Nicolle Edmond Performing Organization Address City/State/Zipcode Phone Number MIKE [employer] [facility] [place] [address] [place] [address] * CBC with platelet and differential (12/04/2018 11:23 AM CDT) Only the most recent of 3 results within the time period is included. WBC 8.2 3.8 - 10.8 [facility] Thousand/uL [facility] [place] RBC 3.85 3.80 - 5.10 [facility] Million/uL [facility] [place] HGB 12.1 11.7 - 15.5 g/dL [facility] [employer] [place] HCT 35.6 35.0 - 45.0 % [facility] [place] MCV 92.5 80.0 - 100.0 fL [facility] [place] MCH 31.4 27.0 - 33.0 pg [facility] [place] MCHC 34.0 32.0 - 36.0 g/dL [facility] [place] RDW 12.6 11.0 - 15.0 % [facility] [place] Platelet count 126 (L) 140 - 400 [facility] Thousand/uL [facility] MPV 13.5 (H) 7.5 - 12.5 fL [facility] [place] Neutrophils, 4,617 1,500 - 7,800 [facility] absolute cells/uL [facility] [place] Lymphocytes, 2,485 850 - 3,900 cells/uL [facility] absolute [facility] [place] Monocytes, 894 200 - 950 cells/uL [facility] absolute [facility] [place] Eosinophils, 131 15 - 500 cells/uL [facility] absolute [facility] [place] Basophils, 74 0 - 200 cells/uL [facility] absolute [facility] [place] Neutrophils 56.3 % [facility] [place] Lymphocytes 30.3 % [facility] [employer] [place] Monocytes 10.9 % [facility] [employer] [place] Eosinophils 1.6 % [facility] [place] Basophils + RC 0.9 % [facility] [place] Specimen Blood Narrative Performed At FASTING:NO [facility] FASTING: NO Resulting Agency Comment Performing Organization Information: Site ID: A Name: [facility] Address: [address] [place] [phone] Director: Nicolle Edmond Performing Organization Address City/[facility]/Zipcode Phone Number [facility] [place] [address] [place] [address] * GGT (12/04/2018 11:23 AM CDT) Only the most recent of 2 results within the time period is included. GGT 108 (H) 3 - 65 U/L [employer] [facility] [place] Specimen Blood Narrative Performed At FASTING:NO [facility] FASTING: NO Resulting Agency Comment Performing Organization Information: Site ID: [id number] Name: [facility] Address: [address] [place] [phone] Director: Nicolle Edmond Performing Organization Address City/[facility] Centercode Phone Number [facility] [place] [address] [place] [address] * Comprehensive metabolic panel (12/04/2018 11:23 AM CDT) Only the most recent of 3 results within the time period is included. Glucose 88 65 - 139 mg/dL [facility] Comment: DIAGNOSTICS Non-fasting [place] reference interval BUN, whole 16 7 - 25 mg/dL [employer] blood [facility] [place] Creatinine 0.61 0.50 - 0.99 mg/dL [facility] Comment: DIAGNOSTICS For patients >49 years of age, [place] the reference limit for Creatinine is approximately 13% higher for people identified as -Chadian. EGFR Non-Afr. 99 > OR=60 [facility] [place] mL/min/1.73m2 [facility] [place] EGFR 114 > OR=60 [facility] [place] mL/min/1.73m2 [facility] [place] BUN/creatinine NOT APPLICABLE 6 - 22 (calc) [facility] ratio [facility] [place] Sodium 138 135 - 146 mmol/L [facility] [place] Potassium 4.2 3.5 - 5.3 mmol/L [facility] [place] Chloride 101 98 - 110 mmol/L [facility] [place] CO2 31 20 - 32 mmol/L [facility] [place] Calcium 9.3 8.6 - 10.4 mg/dL [facility] [place] Protein 6.8 6.1 - 8.1 g/dL [facility] [place] Albumin, S 3.8 3.6 - 5.1 g/dL [facility] [place] Globulin, total 3.0 1.9 - 3.7 g/dL [facility] (calc) [facility] [place] Albumin/globuli 1.3 1.0 - 2.5 (calc) [facility] n ratio [facility] [place] Total bilirubin 0.7 0.2 - 1.2 mg/dL [facility] [place] Alkaline 105 33 - 130 U/L [facility] phosphatase [facility] [place] AST 16 10 - 35 U/L [facility] [place] ALT 15 6 - 29 U/L [facility] [place] Specimen Blood Narrative Performed At FASTING:NO [facility] FASTING: NO Resulting Agency Comment Performing Organization Information: Site ID: [id number] Name: [facility] Address: [address] [place] [phone] Director: Nicolle Edmond Performing Organization Address City/State/[facility] Centercosd Phone Number MIKE [facility] [address] [address] * POC urinalysis dipstick (09/05/2018 [...] Breast Screen Tomosynthesis Bilateral (04/27/2018 9:34 AM SALES MERCHANDISER) Specimen Narrative Performed At PROCEDURE: MAMMO BREAST SCREEN [facility] Computer aided detection was utilized for the [...] findings. This facility is accredited by [employer] for Mammography. A negative x-ray report should not delay biopsy if a dominant or clinically suspicious mass is present. Not all cancers are identified by x-ray. [id number] Performing Organization Address City/State/Zipcode Phone Number [facility]RI[facility] [address] [place] [address] * Microalbumin / creatinine urine ratio (04/18/2018 8:52 AM CDT) Creatinine, 103 20 - 275 mg/dL [facility] urine, random [facility] [place] Microalbumin, 0.9 See Note: mg/dL [facility] urine Comment: DIAGNOSTICS Reference Range: [place] Reference Range Not established Microalbumin/cr 9 <30 mcg/mg creat [facility] eatinine ratio Comment: DIAGNOSTICS The ADA defines abnormalities SCHULTZ in albumin excretion as follows: Category Result (mcg/mg creatinine) Normal <30 Microalbuminuria 30-299 Clinical albuminuria > AR=696 The ADA recommends that at least two of three specimens collected within a 3-6 month period be abnormal before considering a patient to be within a diagnostic category. Specimen Urine Narrative Performed At FASTING:YES [facility] FASTING: YES Resulting Agency Comment Performing Organization Information: Site ID: [id number] Name: [facility] Address: [address] [place] [phone] Director: Nicolle Edmond Performing Organization Address [facility] [place] [address] * Thyroid stimulating hormone (04/18/2018 8:52 AM CDT) TSH 3.80 0.40 - 4.50 mIU/L [facility] [place] Specimen Blood Narrative Performed At FASTING:YES [facility] FASTING: YES Resulting Agency Comment Performing Organization Information: Site ID: A Name: [facility] Address: [address] [place] [phone] Director: Nicolle Edmond Performing Organization Address [facility] [place] [address] * Vitamin B12 level (04/18/2018 8:52 AM CDT) Vitamin B12 1,913 (H) 200 - 1,100 pg/mL [facility] [place] Specimen Blood Narrative Performed At FASTING:YES [facility] FASTING: YES Resulting Agency Comment Performing Organization Information: Site ID: A Name: [facility] Address: [address] [place] [phone] Director: Nicolle Edmond Performing Organization Address [facility] Phone Number [facility] [place] [address] [place] [address] * Lipid panel (04/18/2018 8:52 AM CDT) Cholesterol, 186 <200 mg/dL [facility] total [facility] [place] HDL cholesterol 87 >50 mg/dL [facility] [place] Triglycerides 67 <150 mg/dL [facility] [place] LDL cholesterol 85 mg/dL (calc) [facility] calculated Comment: DIAGNOSTICS Reference range: <100 [place] Desirable range <100 mg/dL for primary prevention; <70 mg/dL for patients with CHD or diabetic patients with > or=2 CHD risk factors. LDL-C is now calculated using the Keith calculation, which is a validated novel method providing better accuracy than the Friedewald equation in the estimation of LDL-C. [place] HERNANDEZ et al. LILIANA. 2013;310(19): 1349-1640 (http://education.Hitlantis.DataSphere/faq/EMK375) Cholesterol/HDL 2.1 <5.0 (calc) [facility] ratio [facility]AGNOSTICS [place] Non-HDL 99 <130 mg/dL (calc) [facility] cholesterol Comment: DIAGNOSTICS For patients with diabetes [place] plus 1 major ASCVD risk factor, treating to a non-HDL-C goal of <100 mg/dL (LDL-C of <70 mg/dL) is considered a therapeutic option. Specimen Blood Narrative Performed At FASTING:YES [facility] FASTING: YES Resulting Agency Comment Performing Organization Information: Site ID: [id number] Name: [facility] Address: [address] [place] [phone] Director: Nicolle Edmond Performing Organization Address [facility] Centercosd Phone Number [facility] [place] [address] [place] [address] * Measure post void residual (04/17/2018) Total volume, 0 ml urine Specimen after 01/29/2018 Insurance Type Payer Benefit Subscriber ID Effective Phone Address Plan / Dates Group PPO BCBS BCBS xxxxxxxxxxxxx 2017- CHOICE Present PPO/MERCEDES CARRASCO PPO Advance Directives Patient has advance care planning documents on file. For more information, sidney terrell contact: Hank Eisenberg [phone] [place] [address]
--- OUTSIDE RECORDS SUMMARY | 2019-01-30 06:20 | XMS REPORT | Clinical Summary ---
Author Author 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 Assessment & Plan: Both the [...] Justice MD 01/30/2018 Orders Only Hepatology after 01/29/2018 Immunizations Name Dates Previously Given [...] Taken Vital Sign Reading 08/14/2018 9:34 AM [facility] Blood Pressure 141/82 08/14/2018 9:29 AM [facility] [employer] [facility] Pulse 60 08/14/2018 9:29 AM [facility] [employer] [facility] Temperature 36.3 C (97.4 F) 08/14/2018 9:29 AM [facility] Respiratory Rate 18 08/14/2018 9:29 AM [facility] Oxygen Saturation 95% - Inhaled Oxygen - Concentration 08/14/2018 9:29 AM [facility] Weight 74.3 kg (163 lb 14.4 oz) 08/14/2018 9:29 AM [facility] [employer] [facility] Height 157.5 cm (5' 2") 08/14/2018 9:29 AM [employer] [employer] Body Mass Index 29.98 Plan of Treatment Care Team Description Date Type Specialty Chip Justice MD [facility] [address] [place] [address] [phone] 02/12/2019 Appointment Radiology Resource, [facility] Hep[facility] B 02/12/2019 Office Visit Hepatology Procedures Comments Procedure Name Priority Date/Time Associated Diagnosis URINALYSIS W/ MICROSCOPIC Routine 08/23/2018 Autoimmune hepatitis 11:37 AM WE[employer]ER [employer] [facility]OM (HCC) Lower abdominal pain URINE CULTURE Routine 08/23/2018 Autoimmune hepatitis 11:37 AM WE[employer]ER [employer]OM (HCC) Lower abdominal pain CBC W/PLT COUNT & AUTO Routine 08/14/2018 Abnormal liver enzymes DIFFERENTIAL 11:18 AM [employer]OM PROTHROMBIN TIME/INR Routine 08/14/2018 Abnormal liver enzymes 11:18 AM [employer] CBC W/PLT COUNT & AUTO Routine 08/14/2018 Abnormal liver enzymes DIFFERENTIAL 11:18 AM [employer] MISCELLANEOUS LAB ORDER Routine 08/14/2018 Abnormal liver enzymes 11:18 AM [facility] [employer] [facility] PLATELET COUNT Routine 04/10/2018 Thrombocytopenia (HCC) 9:35 AM CDT THROMBOPOIETIN (TPO) Routine 01/30/2018 10:03 AM CDT after 01/29/2018 Results * Urinalysis w/ Microscopic (08/23/2018 11:37 AM WEAVER HAND LOOM) Color, UA YELLOW YELLOW [facility] Appearance CLEAR CLEAR [facility] Specific Gantt, UA 1.005 1.001 - 1.035 [facility] pH, [...] Agency Comment Performing Organization Information: Site ID: [facility] Name[facility] [place] Address: [address] [place] [phone] Director: Nicolle Edmond Performing Organization Address [facility]/[place] [facility] Centercooh Phone Number [facility] [address] [place] [address] [facility] * Urine culture (08/23/2018 11:37 AM [facility]) Culture Comment: [place] CULTURE, URINE, SPECIAL MICRO NUMBER:[id number] TEST STATUS: FINAL SPECIMEN SOURCE: OTHER (SPECIFY) SPECIMEN QUALITY:ADEQUATE RESULT: No Growth Specimen Urine Narrative Performed At FASTING:NO [facility] FASTING: NO Resulting Agency Comment Performing Organization Information: Site ID: [facility] Name: [facility] Address: [address] [place] [phone] Director: Nicolle Edmond Performing Organization Address City/[facility]/Zipcode Phone Number [facility] [address] [place] [address] [facility] * Miscellaneous lab test (08/14/2018 11:18 AM [facility] [employer] [facility]) Scan Result [facility] Specimen Blood Narrative Performed At Performing Organization Address City/State/Zipcode Phone Number [facility] [address] [place], [place] * CBC with platelet count + automated diff (08/14/2018 11:18 AM [facility] [employer] [facility]) WBC 4.8 3.5 - 10.5 K/L [facility] RBC 4.06 3.93 - 5.22 M/L [facility] Hemoglobin 12.5 11.2 - 15.7 GM/DL [facility] Hematocrit 39.0 34.1 - 44.9 % [facility] MCV 96.1 (H) 79.4 - 94.[address] [facility] MCH 30.8 25.6 - 32.[address] [facility] MCHC 32.1 (L) 32.2 - 35.5 GM/DL [facility] RDW 12.0 11.7 - 14.4 % [facility] Platelets 97 (L) 150 - 450 K/CU MM [facility] MPV 13.5 (H) 9.4 - 12.[address] [facility] nRBC 0 0 - 0 /[address] [facility] % Neutros 35 % [facility] % Lymphs 51 % [facility] % Monos 11 % [facility] % Eos 3 % [facility] % Baso 1 % [facility] # Neutros 1.64 1.56 - 6.13 K/L [facility] # Lymphs 2.43 1.18 - 3.74 K/L [facility] # Monos 0.51 (H) 0.24 - 0.36 K/L [facility] # Eos 0.14 0.04 - 0.36 K/L [facility] # Baso 0.04 0.01 - 0.08 K/L [facility] Immature 0 0 - 1 % [facility] Granulocytes-Relative [facility] Specimen Blood Performing Organization Address City/State/Zipcode Phone Number [facility] [address] [place] [address] MEDICAL CENTER * Pro-time/INR (08/14/2018 11:18 AM [facility]) Protime 12.4 11.7 - 14.[address] [facility] INR 0.9 <=5.9 [facility] Specimen Blood Narrative Performed At RECOMMENDED COUMADIN/WARFARIN INR THERAPY RANGES [facility] STANDARD DOSE: 2.0 - 3.0 Includes: PROPHYLAXIS for venous thrombosis, [facility] systemic embolization; TREATMENT for venous thrombosis and/or pulmonary embolus. HIGH RISK: Target INR is 2.5-3.5 for patients with mechanical heart valves. Performing Organization Address City/[facility]/Zipcode Phone Number [id number] [place] [address] [phone] [address] * Platelet count (04/10/2018 9:35 AM CDT) Platelets 115 (L) 150 - 450 K/CU MM [facility] Specimen Blood Performing Organization Address City/[facility]/[place] [facility] Centercode Phone Number [address] [address] [phone] * THROMBOPOIETIN (TPO) (01/30/2018 10:03 AM CDT) THROMBOPOIETIN (TPO) 64 7 - 99 pg/mL DANIELA Comment: This test was performed using a kit that has not been cleared or approved by the FDA. The analytical performance characteristics of this test have been determined by [facility]. This test should not be used for diagnosis without confirmation by other medically established means. Specimen Narrative Performed At FASTING:NO [facility] AN UPDATE OR CORRECTION HAS BEEN MADE TO NAME FASTING: NO Resulting Agency Comment Performing Organization Information: Site ID: [id number] Name: [facility], Address: [address] [place] [phone] Director: Dhara Manuel MD,PhD,AYDE Performing Organization Address City/State/Zipcode Phone Number [facility] [address] [place] [address] DANIELA after 01/29/2018 Insurance Payer Benefit Subscriber ID Type Phone Address Plan / Group BLUE CROSS[facility] xxxxxxxxxxxxx PPO [phone] [address] POS/PPO/[place] [address] O
--- OUTSIDE RECORDS SUMMARY | 2019-01-30 06:21 | XMS REPORT | Continuity of Care Document ---
Author Author [employer] Organization [employer] Address Unknown Phone Unavailable Care Team Providers Care Channel Worker Name Role Phone [facility] Unavailable Unavailable Problems Problem Status Onset Date Classification Date Reported Comments Source Pain in left shoulder 08/04/2017 11/03/2017 [facility] FALL Active 07/28/2017 [facility] Shoulder pain, left 07/28/2017 11/03/2017 [facility] Fall 07/28/2017 11/03/2017 [facility] BRONCHITIS, CHF, CP Active 10/18/2011 [facility] Inflammatory liver disease, unspecified 11/03/2017 [facility] Fall on same level from slipping, tripping and stumbling without subsequent striking against object, initial encounter 11/03/2017 [facility] Chest pain Active Problem 11/03/2017 [facility] Cough Active Problem 11/03/2017 [facility] Shortness of breath Active Problem 11/03/2017 [facility] Chest pain Active Problem 10/21/2011 [facility] Cough Active Problem 10/21/2011 [facility] Shortness of breath Active Problem 10/21/2011 [facility] Encounter for preprocedural cardiovascular examination Active Diagnosis [...] kg, Priority: STAT, Start date: 07/28/17 20:20:00 DIRECTOR SUPPLY, Stop date: 07/28/17 20:20:00 CSTNotes: Do not exceed 4 gm/day. (Same as: Tylenol) Inactive 07/29/2017 [facility] tramadol hydrochloride 50 MG Oral Tablet 50 mg=1 tab, PO, Q6H, PRN Pain, X 3 day, # 12 tab, 0 Refill(s) No Longer Active 07/29/2017 [facility] Acetaminophen 650 mg, 1 supp, Route: OR, Drug form: SUPP, ONCE, Dosing Weight 75, kg, Priority: STAT, Start date: 07/28/17 19:39:00 DIRECTOR SUPPLY, Stop date: 07/28/17 19:39:00 CSTNotes: Max [id number] mg/day (4 gm/day). (Same as: Tylenol) Inactive 07/29/2017 [facility] azithromycin 500 mg, 250 mL, Route: IVPB, Drug form: PDR/INJ, [id number], Start date: 10/19/11 11:00:00, Duration: 30 day, Stop date: 11/17/11 11:00:00 IVPB No Longer Active [facility] 10/19/2011 [facility] Rocephin 1 gm, Route: IVPB, [id number], Start date: 10/19/11 11:00:00, Duration: 30 day, Stop date: 11/17/11 11:00:00 IVPB No Longer Active [facility] 10/19/2011 [facility] Robitussin-AC oral syrup 5 ml, PO, Q4H, PRN, 75 mL, for cough, Substitution Allowed, Maintenance, SYRP PO Active [facility] 10/19/2011 [facility] Azithromycin 5 Day Dose Pack 250 mg oral tablet See Instructions, 1 pkg, Substitution Allowed, as directed on package labelingas directed on package labeling Active [facility] 10/19/2011 [facility] albuterol 90 mcg/inh inhalation aerosol 1- 2 puff, INHALATION, QID, PRN, 1 unit, wheezing, Substitution Allowed, Maintenance INHALATION Active [facility] 10/19/2011 [facility] aspirin 325 mg, 1 tab, Route: PO, Drug form: TAB, Daily, Start date: 10/19/11 9:00:00, Duration: 30 day, Stop date: 11/17/11 9:00:00 PO No Longer Active [facility] 10/19/2011 [facility] metoprolol tartrate 25 mg, 1 tab, Route: PO, Drug form: TAB, BID, first dose now, Start date: 10/19/11 9:00:00, Duration: 30 day, Stop date: 11/17/11 17:00:00 PO No Longer Active [facility] 10/19/2011 [facility] iron sulfate (ferrous sulfate) 325 mg oral tablet Substitution Allowed Active 10/19/2011 [facility] albuterol 0.083% inhalation solution 2.49 mg, 3 mL, Route: INHALATION, Drug form: SOLN, RQ4H, Start date: 10/19/11 3:00:00, Duration: 30 day, Stop date: 11/17/11 23:00:00 INHALATION No Longer Active [facility] 10/19/2011 [facility] penicillin V potassium 500 mg oral tablet Substitution Allowed Active 10/19/2011 [facility] Nyquil Cold & Flu Substitution Allowed, Maintenance Active 10/19/2011 [facility] Robitussin-DM 10 mL, Route: PO, Drug Form: SYRP, Q4H, PRN as needed for cough, Start date: 10/19/11 1:14:00, Duration: 30 day, Stop date: 11/18/11 1:13:00 PO No Longer Active [facility] 10/19/2011 [facility] SoluMedrol 40 mg, 1 mL, Route: IV, Drug form: INJ, ONCE, Start date: 10/19/11 1:07:00, Stop date: 10/19/11 1:07:00 IV No Longer Active [facility] 10/19/2011 [facility] Robitussin D Route: PO, Q4H, PRN Cough, STAT, Start date: 10/19/11 1:06:00, Duration: 30 day, Stop date: 11/18/11 1:05:00 PO No Longer Active [facility] 10/19/2011 [facility] Saline Flush 0.9% 5 ml, Route: IVP, Drug Form: INJ, Q12H, Start date: 10/18/11 21:00:00, Duration: 30 day, Stop date: 11/17/11 9:00:00 IVP No Longer Active [facility] 10/19/2011 [facility] DuoNeb inhalation solution 3 ml, Route: INHALATION, Drug Form: SOLN, Q6H, PRN as needed for shortness of breath or wheezing, Start date: 10/18/11 17:42:00, Duration: 30 day, Stop date: 11/17/11 17:41:00 INHALATION No Longer Active [facility] 10/18/2011 [facility] [place] 5/325 oral tablet 1 tab, Route: PO, Drug Form: TAB, Q6H, PRN Pain, Start date: 10/18/11 17:41:00, Duration: 30 day, Stop date: 11/17/11 17:40:00 PO No Longer Active [facility] 10/18/2011 [facility] Tylenol 650 mg, 2 tab, Route: PO, Drug form: TAB, Q6H, PRN Pain, Start date: 10/18/11 17:41:00, Duration: 30 day, Stop date: 11/17/11 17:40:00 PO No Longer Active [facility] 10/18/2011 [facility] morphine Sulfate 2 mg, 1 mL, Route: IVP, Drug form: INJ, Q4H, PRN Pain, Start date: 10/18/11 17:41:00, Duration: 30 day, Stop date: 11/17/11 17:40:00 IVP No Longer Active [facility] 10/18/2011 [facility] Saline Flush 0.9% 5 ml, Route: IVP, Drug Form: INJ, PRN, PRN Line Flush, Start date: 10/18/11 17:39:00, Duration: 30 day, Stop date: 11/17/11 17:38:00 IVP No Longer Active [facility] 10/18/2011 [facility] nitroglycerin SL Tab 0.4 mg, 1 tab, Route: SL, Drug form: TAB, Q5Min, PRN Chest Pain, Start date: 10/18/11 17:39:00, Duration: 3 doses or times, Stop date: Limited # of times SL No Longer Active [facility] 10/18/2011 [facility] morphine Sulfate 2 mg, 1 mL, Route: IVP, Drug form: INJ, Q15Min, PRN Chest Pain, Start date: 10/18/11 17:39:00, Duration: 2 doses or times, Stop date: Limited # of times IVP No Longer Active [facility] 10/18/2011 [facility] ondansetron 4 mg, 2 mL, Route: IVP, Drug form: INJ, Q8H, PRN Nausea & Vomiting, Start date: 10/18/11 17:39:00, Duration: 30 day, Stop date: 11/17/11 17:38:00 IVP No Longer Active [facility] 10/18/2011 [facility] Multivitamin Adult as directed Orally Active - Orally [facility] Vitamin B-12 1 tablet Orally Active 1000 MCG Orally Once a day [facility] Ursodiol as directed Orally Active 300 MG Orally BID [facility] Calcium Carbonate as directed Orally Active 600 MG Orally BID [facility] Vitamin E 1 capsule Orally Active 400 UNIT Orally Once a day [facility] Atenolol 1 tablet Orally Active 50 [...] Index <0.4 0.0 - 2.5 10/19/2011 Normal [facility] CHEMISTRY CK MB <0.5 0.5 - 3.6 10/19/2011 Normal [facility] CHEMISTRY LDL 107 0 - 129 10/19/2011 Normal [facility] CHEMISTRY HDL 80 >=35 10/19/2011 Normal [facility] CHEMISTRY Chol 196 120 - 200 10/19/2011 Normal [facility] CHEMISTRY Trig 47 0 - 200 10/19/2011 Normal [facility] CHEMISTRY CHD Risk 2.45 3.90 - 5.80 10/19/2011 LOW [facility] CHEMISTRY AGAP 14.2 10.0 - 20.0 10/19/2011 Normal [facility] CHEMISTRY Creatinine Lvl 0.7 0.5 - 1.4 10/19/2011 Normal [facility] CHEMISTRY Potassium Lvl 4.2 3.5 - 5.1 10/19/2011 Normal [facility] CHEMISTRY Chloride Lvl 104 95 - 109 10/19/2011 Normal [facility] CHEMISTRY Sodium Lvl 140 135 - 145 10/19/2011 Normal [facility] CHEMISTRY Glucose Lvl 128 70 - 99 10/19/2011 [facility] <sup>1</sup>Interpretive Data: Adult reference range values reflect the clinical guidelines of the [employer]. [facility] CHEMISTRY BUN 11 7 - 22 10/19/2011 Normal [facility] CHEMISTRY CO2 26 24 - 32 10/19/2011 Normal [facility] CHEMISTRY Calcium Lvl 9.5 8.5 - 10.5 10/19/2011 Normal [facility] CHEMISTRY Total CK 140 12 - 191 10/19/2011 Normal [facility] CHEMISTRY Troponin-I <0.02 0.00 - 0.40 10/19/2011 Normal [facility] HEMATOLOGY Segs 83.7 45.0 - 75.0 10/19/2011 HI [facility] HEMATOLOGY Lymphocytes 11.3 20.0 - 40.0 10/19/2011 LOW [facility] HEMATOLOGY Monocytes 4.4 2.0 - 12.0 10/19/2011 Normal [facility] HEMATOLOGY Eosinophils 0.4 0.0 - 4.0 10/19/2011 Normal [facility] HEMATOLOGY Eosinophils # 0.0 0.0 - 0.5 10/19/2011 Normal [facility] HEMATOLOGY Basophils # 0.0 0.0 - 0.2 10/19/2011 Normal [facility] HEMATOLOGY Lymphocytes # 1.3 1.0 - 5.5 10/19/2011 Normal [facility] HEMATOLOGY Monocytes # 0.5 0.0 - 0.8 10/19/2011 Normal [facility] HEMATOLOGY Basophils 0.2 0.0 - 1.0 10/19/2011 Normal [facility] HEMATOLOGY Segs-Bands # 9.5 1.5 - 8.1 10/19/2011 HI [facility] HEMATOLOGY RBC 3.90 4.20 - 5.40 10/19/2011 LOW [facility] HEMATOLOGY Hgb 12.0 12.0 - 16.0 10/19/2011 Normal [facility] HEMATOLOGY WBC 11.4 3.7 - 10.4 10/19/2011 HI [facility] HEMATOLOGY MCH 30.8 27.0 - 31.0 10/19/2011 Normal [facility] HEMATOLOGY MCV 91.7 81.0 - 99.0 10/19/2011 Normal [facility] HEMATOLOGY Hct 35.8 36.0 - 48.0 10/19/2011 LOW [facility] HEMATOLOGY MPV 12.1 7.4 - 10.4 10/19/2011 [facility] HEMATOLOGY MCHC 33.6 32.0 - 36.0 10/19/2011 Normal [facility] HEMATOLOGY Platelet 135 133 - 450 10/19/2011 Normal [facility] HEMATOLOGY RDW 13.3 11.5 - 14.5 10/19/2011 Normal [facility] CHEMISTRY CK MB Index 0.4 0.0 - 2.5 10/19/2011 Normal [facility] CHEMISTRY CK MB 0.7 0.5 - 3.6 10/19/2011 Normal [facility] CHEMISTRY BNP 92 <=100 10/19/2011 Normal <sup>2</sup>Interpretive Data: Elevated results are in line with increasing severity of congestive heart failure. Minor elevations between 100 and 300 may be seen with Myocardial Ischemia, Sodium retaining drugs, and compensated/treated heart failure. [facility] CHEMISTRY Troponin-I <0.02 0.00 - 0.40 10/19/2011 Normal [facility] CHEMISTRY Total CK 169 12 - 191 10/19/2011 Normal [facility] HEMATOLOGY Platelet 132 133 - 450 10/18/2011 LOW [facility] HEMATOLOGY MCH 30.7 27.0 - 31.0 10/18/2011 Normal [facility] HEMATOLOGY RDW 13.0 11.5 - 14.5 10/18/2011 Normal [facility] HEMATOLOGY MCV 91.4 81.0 - 99.0 10/18/2011 Normal [facility] HEMATOLOGY MCHC 33.6 32.0 - 36.0 10/18/2011 Normal [facility] HEMATOLOGY MPV 12.7 7.4 - 10.4 10/18/2011 [facility] HEMATOLOGY Hct 36.8 36.0 - 48.0 10/18/2011 Normal [facility] HEMATOLOGY WBC 13.9 3.7 - 10.4 10/18/2011 [facility] HEMATOLOGY RBC 4.03 4.20 - 5.40 10/18/2011 LOW [facility] HEMATOLOGY Hgb 12.4 12.0 - 16.0 10/18/2011 Normal [facility] HEMATOLOGY Monocytes 11.7 2.0 - 12.0 10/18/2011 Normal [facility] HEMATOLOGY Lymphocytes 23.6 20.0 - 40.0 10/18/2011 Normal [facility] HEMATOLOGY Segs 61.5 45.0 - 75.0 10/18/2011 Normal [facility] HEMATOLOGY Plt Morph Normal (10/18/2011 16:30:00) 10/18/2011 Normal [facility] HEMATOLOGY RBC Morph Normal (10/18/2011 16:30:00) 10/18/2011 Normal [facility] HEMATOLOGY Monocytes # 1.6 0.0 - 0.8 10/18/2011 [facility] HEMATOLOGY Lymphocytes # 3.3 1.0 - 5.5 10/18/2011 Normal [facility] HEMATOLOGY Segs-Bands # 8.6 1.5 - 8.1 10/18/2011 [facility] HEMATOLOGY Basophils 0.3 0.0 - 1.0 10/18/2011 Normal [facility] HEMATOLOGY Eosinophils 2.9 0.0 - 4.0 10/18/2011 Normal [facility] HEMATOLOGY Basophils # 0.0 0.0 - 0.2 10/18/2011 Normal [facility] HEMATOLOGY Eosinophils # 0.4 0.0 - 0.5 10/18/2011 Normal [facility] Pathology Reports No Data Provided for This Section Diagnostic Reports Report Value Date Source Elbow 3 views DX Study: Left elbow, 3 views Clinical Indication: Left elbow pain status post fall Comparison: None FINDINGS: Multiple views of the left elbow show no acute bony fracture or joint dislocation. Soft tissues are unremarkable. IMPRESSION: No acute bony abnormality of the left elbow. SL: [id number] 07/28/2017 [facility] Shoulder series DX Study: Left shoulder, 3 views Clinical Indication: Left shoulder pain post fall Comparison: None FINDINGS: Multiple views of the left shoulder show no acute bony fracture or joint dislocation. Mild AC joint osteoarthrosis is seen. Soft tissues are unremarkable. IMPRESSION: No acute bony abnormality of the left shoulder. SL: [id number] 07/28/2017 [facility] Consultation Notes No Data Provided for This [...] Cardiovascular Temperature Oral (F) 98.0 F 07/29/2017 [facility] Heart Rate 68 07/29/2017 [facility] Systolic (mm Hg) 138 07/29/2017 [facility] Diastolic (mm Hg) 80 07/29/2017 [facility] Respitory Rate 17 07/29/2017 [facility] Weight 75 07/28/2017 [facility] BMI Calculated 28.38 07/28/2017 [facility] Height 162.56 cm 07/28/2017 [facility] Systolic (mm Hg) 155 07/28/2017 [facility] Diastolic (mm Hg) 89 07/28/2017 [facility] Heart Rate 59 07/28/2017 [facility] Respitory Rate 18 07/28/2017 [facility] Temperature Oral (F) 97.5 F 07/28/2017 [facility] Temperature Oral (F) 97.9 F 10/19/2011 [facility] Respitory Rate 20 10/19/2011 [facility] Heart Rate 82 10/19/2011 [facility] Diastolic (mm Hg) 74 10/19/2011 [facility] Systolic (mm Hg) 119 10/19/2011 [facility] Systolic (mm Hg) 121 10/19/2011 [facility] Heart Rate 76 10/19/2011 [facility] Respitory Rate 20 10/19/2011 [facility] Temperature Oral (F) 97.8 F 10/19/2011 [facility] Diastolic (mm Hg) 71 10/19/2011 [facility] Systolic (mm Hg) 130 10/19/2011 [facility] Diastolic (mm Hg) 77 10/19/2011 [facility] Heart Rate 74 10/19/2011 [facility] Respitory Rate 20 10/19/2011 [facility] Temperature Oral (F) 97.5 F 10/19/2011 [facility] Weight 79.545 10/19/2011 [facility] Height 167.64 cm 10/19/2011 [facility] Encounters Location Location Details Encounter Type Encounter Number Reason For Visit Attending Provider ADM Date DC Date Status Source [facility] OU [id number] BRONCHITIS, CHF, CP ELLEN CLIFFORD 10/18/2011 10/19/2011 Active [facility] Emergency [id number] Fadia Peng 07/28/2017 07/29/2017 [facility] Procedures Procedure Code Date Perfomer Comments Source section [id number] [facility] Assessment and Plan No Data Provided for This Section Plan of Care No Data Provided for This Section Social History Social History Date Source Social History TypeResponse Smoking Status Never smoker; Exposure to Tobacco Smoke None; Cigarette Smoking Last 365 Days No; Reg Smoking Cessation Counseling No entered on: 07/28/17 07/29/2017 [facility] Family History No Data Provided for This Section Advance Directives No Data Provided for This Section Functional Status No Data Provided for This Section
[2019-01-30] MEDS ORDERED: BUPIVACAINE 7.5MG/ML /DEXTROSE 82.5MG/ML 2 ML AMP INJ ONE (07:05)
[2019-01-30] MEDS ORDERED: DEXAMETHASONE SOD PHOS 10 MG/1 ML VIAL ONE (07:19)
[2019-01-30] MEDS ORDERED: GABAPENTIN 300 MG CAP ONE (07:19)
[2019-01-30] MEDS ORDERED: CELECOXIB 200 MG CAP ONE (07:19)
[2019-01-30] MEDS ORDERED: VANCOMYCIN 1GM/NS 250 ML 250 ML ONE (07:19)
[2019-01-30] MEDS: SODIUM CHLORIDE 0.9% 1000ML 1,000 ML IV SCH ×2 (09:28→22:17)
[2019-01-30] MEDS ORDERED: DOCUSATE SODIUM 100 MG CAP PO PRN (09:30)
[2019-01-30] MEDS ORDERED: KETOROLAC TROMETHAMINE 30 MG/ML VIAL IV PRN (09:30)
[2019-01-30] MEDS ORDERED: ONDANSETRON HCL INJ 2MG/ML 2ML 2 MG/ML VIAL IV PRN (09:30)
[2019-01-30] MEDS ORDERED: ACETAMINOPHEN 650 MG SUPP PR PRN (09:30)
[2019-01-30] MEDS ORDERED: DIPHENHYDRAMINE HCL INJ 50 MG/ML VIAL IM/IV PRN (09:30)
[2019-01-30] MEDS ORDERED: HYDROCODONE/APAP 7.5MG-325MG 1 EA TAB PO PRN (09:30)
[2019-01-30] MEDS ORDERED: HYDROCODONE/APAP 5MG-325MG TAB PO PRN (09:30)
[2019-01-30] MEDS ORDERED: PROMETHAZINE HCL (IM) 25 MG/ML VIAL IM PRN (09:30)
--- OUTSIDE RECORDS SUMMARY | 2019-01-30 09:56 | XMS REPORT | Clinical Summary ---
Author Author [facility] Address Unknown Phone Unavailable Care Team Providers Care Chief Psychologist Name Role Phone Althea Gentile MD PCP [...] Dx); Lipid screening declined by patient; Other half-way (current) drug therapy; Encounter for screening mammogram [...] 11/22/2018 relatives? How often do you attend cheondoism or restoration Never 11/22/2018 services? 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 mammogram for malignant neoplasm of breast URINALYSIS, AUTOMATED Routine 04/18/2018 Essential hypertension WITH MICROSCOPY 8:52 AM CDT THYROID STIMULATING Routine 04/18/2018 Lipid screening declined HORMONE 8:52 AM CDT by patient GGT Routine 04/18/2018 Lipid screening declined 8:52 AM CDT by patient VITAMIN B12 LEVEL Routine 04/18/2018 Other half-way (current) 8:52 AM CDT drug therapy LIPID [...] CDT) Color, UA YELLOW YELLOW [facility] [place] Appearance CLEAR CLEAR [facility] [place] Specific 1.009 1.001 - 1.035 [facility] gravity, urine [facility] [place] pH, urine 7.5 5.0 - 8.0 [facility] [place] Glucose, urine NEGATIVE NEGATIVE [facility] [place] Bilirubin, UA NEGATIVE NEGATIVE [facility] [place] Ketones, UA NEGATIVE NEGATIVE [facility] [place] Occult blood, NEGATIVE NEGATIVE [facility] [place] Protein, UA NEGATIVE NEGATIVE [facility] [place] Nitrite, UA NEGATIVE NEGATIVE [facility] [place] Leukocyte NEGATIVE NEGATIVE [facility] esterase, UA [facility] [place] WBC, UA NONE SEEN < OR=5 /HPF [facility] [place] RBC, UA NONE SEEN < OR=2 /HPF [facility] [place] Squamous NONE SEEN < OR=5 /HPF [facility] epithelial DIAGNOSTICS cells, UA [place] Bacteria, UA NONE SEEN NONE SEEN /HPF [facility] [place] Hyaline casts, NONE SEEN NONE SEEN /LPF [facility] [place] Reflex NO CULTURE INDICATED [employer] [place] Specimen Narrative Performed At FASTING:NO [facility] FASTING: NO Resulting Agency Comment Performing Organization Information: Site ID: [id number] Name: [facility] Address: [address] [place] [phone] Director: Nicolle Edmond Performing Organization Address City/State/[place]code [place] [address] * Partial thromboplastin time, activated (01/04/2019 9:39 AM CDT) Pathologist [facility] PTT 34 22 - 34 sec [facility] Comment: DIAGNOSTICS This test has not been SCHULTZ validated for monitoring unfractionated heparin therapy. For testing that is validated for this type of therapy, please refer to the Heparin Anti-Xa assay (test code 96419). For additional information, please refer to http://education.[employer]/faq/RAH497 (This link is being provided for informational/educational purposes only.) Specimen Blood Narrative Performed At FASTING:NO [facility] FASTING: NO Resulting Agency Comment Performing Organization Information: Site ID: [id number] Name: [facility] Address: [address] [place] [phone] Director: Nicolle Edmond Performing Organization Address City/[facility] Phone [place] [address] * Prothrombin time with INR (01/04/2019 9:39 AM CDT) INR 1.0 [facility] Comment: DIAGNOSTICS Reference [place] Range 0.9-1.1 Moderate-intensity Warfarin Therapy 2.0-3.0 Higher-intensity Warfarin Therapy 3.0-4.0 Prothrombin 10.0 9.0 - 11.5 sec [facility] time Comment: DIAGNOSTICS For more information on this [place] test, go to: http://education.[employer]/faq/POD174 Specimen Blood Narrative Performed At FASTING:NO [facility] FASTING: NO Resulting Agency Comment Performing Organization Information: Site ID: A Name: [facility] Address: [address] [place] [phone] Director: Nicolle Edmond Performing Organization Address [facility] Phone [place] [address] * Cv stress test (12/25/2018) Narrative Performed At * Urinalysis, automated with microscopy (12/22/2018 2:20 PM CDT) Only the most recent of 4 results within the time period is included. Color, UA YELLOW YELLOW [facility] [place] Appearance CLEAR CLEAR [facility] [place] Specific 1.010 1.001 - 1.035 [facility] gravity, urine [facility]AG[facility]ST[facility] [place] pH, urine 7.5 5.0 - 8.0 [facility] [place] Glucose, urine NEGATIVE NEGATIVE [facility] [place] Bilirubin, UA NEGATIVE NEGATIVE [facility] [place] Ketones, UA NEGATIVE NEGATIVE [facility] [place] Occult blood, NEGATIVE NEGATIVE [facility] [place] Protein, UA NEGATIVE NEGATIVE [facility] [place] Nitrite, UA NEGATIVE NEGATIVE [facility] [place] Leukocyte NEGATIVE NEGATIVE [facility] esterase, [facility] [place] WBC, UA NONE SEEN < OR=5 /HPF [facility] [place] RBC, UA NONE SEEN < OR=2 /HPF [facility] [place] Squamous 0-5 < OR=5 /HPF [facility] epithelial DIAGNOSTICS cells, UA [place] Bacteria, UA MANY (A) NONE SEEN /HPF [facility] [place] Hyaline casts, NONE SEEN NONE SEEN /LPF [facility] [place] Specimen Urine Narrative Performed At FASTING:NO [facility] FASTING: NO Resulting Agency Comment Performing Organization Information: Site ID: [id number] Name: [facility] Address: [address] [place] [phone] Director: Nicolle Edmond Performing Organization Address City/State/Zipcode Phone Number MIKE [employer] [address] [address] * Urine culture (12/22/2018 2:20 PM CDT) Only the most recent of 3 results within the time period is included. Urine culture SEE NOTE (A) [facility] Comment: DIAGNOSTICS CULTURE, URINE, ROUTINE [place] MICRO NUMBER:[id number] TEST STATUS: FINAL SPECIMEN SOURCE: URINE SPECIMEN [...] Performing Organization Information: Site ID: [id number] Name: [facility] Address: [address] [place] [phone] Director: Nicolle Edmond Performing Organization Address City/State/Zipcode Phone Number MIKE [facility] [facility] [place] [address] [place] [phone] * CBC with platelet and differential (12/04/2018 11:23 AM CDT) Only the most recent of 3 results within the time period is included. WBC 8.2 3.8 - 10.8 [facility] [employer]/uL [facility] [place] RBC 3.85 3.80 - 5.10 [facility] Million/uL [facility] [place] HGB 12.1 11.7 - 15.5 g/dL [facility] [employer] [place] HCT 35.6 35.0 - 45.0 % [employer] [place] MCV 92.5 80.0 - 100.0 fL [facility] [place] MCH 31.4 27.0 - 33.0 pg [employer] [place] MCHC 34.0 32.0 - 36.0 g/dL [employer] [place] RDW 12.6 11.0 - 15.0 % [employer] [place] Platelet count 126 (L) 140 - 400 [facility] [employer]/uL [facility] MPV 13.5 (H) 7.5 - 12.5 fL [employer] [place] Neutrophils, 4,617 1,500 - 7,800 [facility] absolute cells/uL [facility] [place] Lymphocytes, 2,485 850 - 3,900 cells/uL [facility] absolute [facility] [place] Monocytes, 894 200 - 950 cells/uL [facility] absolute [facility] [place] Eosinophils, 131 15 - 500 cells/uL [facility] absolute [facility] [place] Basophils, 74 0 - 200 cells/uL [facility] absolute [facility] [place] Neutrophils 56.3 % [employer] [place] Lymphocytes 30.3 % [facility] [employer] [place] Monocytes 10.9 % [facility] [employer] [place] Eosinophils 1.6 % [employer] [place] Basophils + RC 0.9 % [employer] [place] Specimen Blood Narrative Performed At FASTING:NO [facility] FASTING: NO Resulting Agency Comment Performing Organization Information: Site ID: A Name: [facility] Address: [address] [place] [phone] Director: Nicolle Edmond Performing Organization Address City/[facility]/Zipcode Phone Number [facility] [address] [place] [phone] * GGT (12/04/2018 11:23 AM CDT) Only the most recent of 2 results within the time period is included. GGT 108 (H) 3 - 65 U/L [facility] [place] Specimen Blood Narrative Performed At FASTING:NO [facility] FASTING: NO Resulting Agency Comment Performing Organization Information: Site ID: RGA Name: [facility] Address: [address] [place] [phone] Director: Nicolle Edmond Performing Organization Address City/[facility] Phone Number [place] [address] [place] [phone] * Comprehensive metabolic panel (12/04/2018 11:23 AM CDT) Only the most recent of 3 results within the time period is included. Glucose 88 65 - 139 mg/dL [facility] Comment: DIAGNOSTICS Non-fasting [place] reference interval BUN, whole 16 7 - 25 mg/dL [facility] blood [facility] [place] Creatinine 0.61 0.50 - 0.99 mg/dL [facility] Comment: DIAGNOSTICS For patients >49 years of age, [place] the reference limit for Creatinine is approximately 13% higher for people identified as -Col[place]ian. EGFR Non-Afr. 99 > OR=60 [facility] Colombian mL/min/1.73m2 DI[facility]STICS [place] EGFR 114 > OR=60 [facility] [place]ian mL/min/1.73m2 [facility] [place] BUN/creatinine NOT APPLICABLE 6 - 22 (calc) [facility] ratio [facility] [place] Sodium 138 135 - 146 mmol/L [facility] [place] Potassium 4.2 3.5 - 5.3 mmol/L [facility] [place] Chloride 101 98 - 110 mmol/L [facility] [place] CO2 31 20 - 32 mmol/L [facility] [place] Calcium 9.3 8.6 - 10.4 mg/dL [facility] [place] Protein 6.8 6.1 - 8.1 g/dL [facility] [place] Albumin, S 3.8 3.6 - 5.1 g/dL [facility] [place] Globulin, total 3.0 1.9 - 3.7 g/dL [facility] (calc) [facility] [place] Albumin/globuli 1.3 1.0 - 2.5 (calc) [facility] n ratio [facility] [place] Total bilirubin 0.7 0.2 - 1.2 mg/dL [facility] [place] Alkaline 105 33 - 130 U/L [facility] phosphatase [facility] [place] AST 16 10 - 35 U/L [facility] [place] ALT 15 6 - 29 U/L [facility] [place] Specimen Blood Narrative Performed At FASTING:NO [facility] FASTING: NO Resulting Agency Comment Performing Organization Information: Site ID: RGA Name: [facility] Address: [address] [place] [phone] Director: Nicolle Edmond Performing Organization Address City/State/[facility] Phone Number MIKE [employer] [address] [address] * POC urinalysis dipstick (09/05/2018 [...] Breast Screen Tomosynthesis Bilateral (04/27/2018 9:34 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 This facility is accredited by [employer] for Mammography. A negative x-ray report should not delay biopsy if a dominant or clinically suspicious mass is present. Not all cancers are identified by x-ray. [id number] Performing Organization Address City/State/Zipcode Phone Number [facility] [address] [place] [address] * Microalbumin / creatinine urine ratio (04/18/2018 8:52 AM CDT) Creatinine, 103 20 - 275 mg/dL [facility] urine, random DIAGNOSTICS [place] Microalbumin, 0.9 See Note: mg/dL [facility] urine Comment: DIAGNOSTICS Reference Range: [place] Reference Range Not established Microalbumin/cr 9 <30 mcg/mg creat [facility] eatinine ratio Comment: DIAGNOSTICS The ADA defines abnormalities SCHULTZ in albumin excretion as follows: Category Result (mcg/mg creatinine) Normal <30 Microalbuminuria 30-299 Clinical albuminuria > YG=490 The ADA recommends that at least two of three specimens collected within a 3-6 month period be abnormal before considering a patient to be within a diagnostic category. Specimen Urine Narrative Performed At FASTING:YES [facility] FASTING: YES Resulting Agency Comment Performing Organization Information: Site ID: RGA Name: [facility] Address: [address] [place] [phone] Director: Nicolle Edmond Performing Organization Address [facility] [place] [address] * Thyroid stimulating hormone (04/18/2018 8:52 AM CDT) TSH 3.80 0.40 - 4.50 mIU/L [employer] [place] Specimen Blood Narrative Performed At FASTING:YES [facility] FASTING: YES Resulting Agency Comment Performing Organization Information: Site ID: A Name: [facility] Address: [address] [place] [phone] Director: Nicolle Edmond Performing Organization Address [facility] [place] [address] * Vitamin B12 level (04/18/2018 8:52 AM CDT) Vitamin B12 1,913 (H) 200 - 1,100 pg/mL [employer] [place] Specimen Blood Narrative Performed At FASTING:YES [facility] FASTING: YES Resulting Agency Comment Performing Organization Information: Site ID: A Name: [facility] Address: [address] [place] [phone] Director: Nicolle Edmond Performing Organization Address [facility] Phone Number [place] [address] [place] [address] * Lipid panel (04/18/2018 8:52 AM CDT) Cholesterol, 186 <200 mg/dL [facility] total [facility]AG[facility] [place] HDL cholesterol 87 >50 mg/dL [facility] [place] Triglycerides 67 <150 mg/dL [facility] [place] LDL cholesterol 85 mg/dL (calc) [facility] calculated Comment: DIAGNOSTICS Reference range: <100 [place] Desirable range <100 mg/dL for primary prevention; <70 mg/dL for patients with CHD or diabetic patients with > or=2 CHD risk factors. LDL-C is now calculated using the Keith calculation, which is a validated novel method providing better accuracy than the Friedewald equation in the estimation of LDL-C. [place] HERNANDEZ et al. LILIANA. 2013;310(19): 4498-2500 (http://education.Huaban.com.Veebeam/faq/DYU162) Cholesterol/HDL 2.1 <5.0 (calc) [facility] ratio DIAGNOSTICS [place] Non-HDL 99 <130 mg/dL (calc) [facility] cholesterol Comment: DIAGNOSTICS For patients with diabetes [place] plus 1 major ASCVD risk factor, treating to a non-HDL-C goal of <100 mg/dL (LDL-C of <70 mg/dL) is considered a therapeutic option. Specimen Blood Narrative Performed At FASTING:YES [facility] FASTING: YES Resulting Agency Comment Performing Organization Information: Site ID: RGA Name: [facility] Address: [address] [place] [phone] Director: Nicolle Edmond Performing Organization Address [facility] Phone Number [place] [address] [place] [address] * Measure post void residual (04/17/2018) Total volume, 0 ml urine Specimen after 01/29/2018 Insurance Type Payer Benefit Subscriber ID Effective Phone Address Plan / Dates Group PPO BCBS BCBS xxxxxxxxxxxxx 2017- CHOICE Present PPO/MERCEDES CARRASCO PPO Advance Directives Patient has advance care planning documents on file. For more information, sidney terrell contact: Hank Eisenberg [phone] [place] [address]
--- OUTSIDE RECORDS SUMMARY | 2019-01-30 09:57 | XMS REPORT | Continuity of Care Document ---
Author Author [employer] Organization [employer] Address Unknown Phone Unavailable Care Team Providers Care Assembly Worker Name Role Phone [employer] Unavailable Unavailable Problems Problem Status Onset Date Classification Date Reported Comments Source Pain in left shoulder 08/04/2017 11/03/2017 [facility] FALL Active 07/28/2017 [facility] Shoulder pain, left 07/28/2017 11/03/2017 [facility] Fall 07/28/2017 11/03/2017 [facility] BRONCHITIS, CHF, CP Active 10/18/2011 [facility] Inflammatory liver disease, unspecified 11/03/2017 [facility] Fall on same level from slipping, tripping and stumbling without subsequent striking against object, initial encounter 11/03/2017 [facility] Chest pain Active Problem 11/03/2017 [facility] Cough Active Problem 11/03/2017 [facility] Shortness of breath Active Problem 11/03/2017 [facility] Chest pain Active Problem 10/21/2011 [facility] Cough Active Problem 10/21/2011 [facility] Shortness of breath Active Problem 10/21/2011 [facility] Encounter for preprocedural cardiovascular examination [...] kg, Priority: STAT, Start date: 07/28/17 20:20:00 BLUEPRINTER, Stop date: 07/28/17 20:20:00 CSTNotes: Do not exceed 4 gm/day. (Same as: Tylenol) Inactive 07/29/2017 [facility] tramadol hydrochloride 50 MG Oral Tablet 50 mg=1 tab, PO, Q6H, PRN Pain, X 3 day, # 12 tab, 0 Refill(s) No Longer Active 07/29/2017 [facility] Acetaminophen 650 mg, 1 supp, Route: SD, Drug form: SUPP, ONCE, Dosing Weight 75, kg, Priority: STAT, Start date: 07/28/17 19:39:00 BLUEPRINTER, Stop date: 07/28/17 19:39:00 CSTNotes: Max [id number] mg/day (4 gm/day). (Same as: Tylenol) Inactive 07/29/2017 [facility] azithromycin 500 mg, 250 mL, Route: IVPB, Drug form: PDR/INJ, [id number], Start date: 10/19/11 11:00:00, Duration: 30 day, Stop date: 11/17/11 11:00:00 IVPB No Longer Active [facility] 10/19/2011 [facility] Rocephin 1 gm, Route: IVPB, [id number], Start date: 10/19/11 11:00:00, Duration: 30 day, Stop date: 11/17/11 11:00:00 IVPB No Longer Active [facility] 10/19/2011 [facility] Robitussin-AC oral syrup 5 ml, PO, Q4H, PRN, 75 mL, for cough, Substitution Allowed, Maintenance, SYRP PO Active [facility] 10/19/2011 [facility] Azithromycin 5 Day Dose Pack 250 mg oral tablet See Instructions, 1 pkg, Substitution Allowed, as directed on package labelingas directed on package labeling Active [facility] 10/19/2011 [facility] albuterol 90 mcg/inh inhalation aerosol 1- 2 puff, INHALATION, QID, PRN, 1 unit, wheezing, Substitution Allowed, Maintenance INHALATION Active [facility] 10/19/2011 [facility] aspirin 325 mg, 1 tab, Route: PO, Drug form: TAB, Daily, Start date: 10/19/11 9:00:00, Duration: 30 day, Stop date: 11/17/11 9:00:00 PO No Longer Active [facility] 10/19/2011 [facility] metoprolol tartrate 25 mg, 1 tab, Route: PO, Drug form: TAB, BID, first dose now, Start date: 10/19/11 9:00:00, Duration: 30 day, Stop date: 11/17/11 17:00:00 PO No Longer Active [facility] 10/19/2011 [facility] iron sulfate (ferrous sulfate) 325 mg oral tablet Substitution Allowed Active 10/19/2011 [facility] albuterol 0.083% inhalation solution 2.49 mg, 3 mL, Route: INHALATION, Drug form: SOLN, RQ4H, Start date: 10/19/11 3:00:00, Duration: 30 day, Stop date: 11/17/11 23:00:00 INHALATION No Longer Active [facility] 10/19/2011 [facility] penicillin V potassium 500 mg oral tablet Substitution Allowed Active 10/19/2011 [facility] Nyquil Cold & Flu Substitution Allowed, Maintenance Active 10/19/2011 [facility] Robitussin-DM 10 mL, Route: PO, Drug Form: SYRP, Q4H, PRN as needed for cough, Start date: 10/19/11 1:14:00, Duration: 30 day, Stop date: 11/18/11 1:13:00 PO No Longer Active [facility] 10/19/2011 [facility] SoluMedrol 40 mg, 1 mL, Route: IV, Drug form: INJ, ONCE, Start date: 10/19/11 1:07:00, Stop date: 10/19/11 1:07:00 IV No Longer Active [facility] 10/19/2011 [facility] Robitussin D Route: PO, Q4H, PRN Cough, STAT, Start date: 10/19/11 1:06:00, Duration: 30 day, Stop date: 11/18/11 1:05:00 PO No Longer Active [facility] 10/19/2011 [facility] Saline Flush 0.9% 5 ml, Route: IVP, Drug Form: INJ, Q12H, Start date: 10/18/11 21:00:00, Duration: 30 day, Stop date: 11/17/11 9:00:00 IVP No Longer Active [facility] 10/19/2011 [facility] DuoNeb inhalation solution 3 ml, Route: INHALATION, Drug Form: SOLN, Q6H, PRN as needed for shortness of breath or wheezing, Start date: 10/18/11 17:42:00, Duration: 30 day, Stop date: 11/17/11 17:41:00 INHALATION No Longer Active [facility] 10/18/2011 [facility] [place] 5/325 oral tablet 1 tab, Route: PO, Drug Form: TAB, Q6H, PRN Pain, Start date: 10/18/11 17:41:00, Duration: 30 day, Stop date: 11/17/11 17:40:00 PO No Longer Active [facility] 10/18/2011 [facility] Tylenol 650 mg, 2 tab, Route: PO, Drug form: TAB, Q6H, PRN Pain, Start date: 10/18/11 17:41:00, Duration: 30 day, Stop date: 11/17/11 17:40:00 PO No Longer Active [facility] 10/18/2011 [facility] morphine Sulfate 2 mg, 1 mL, Route: IVP, Drug form: INJ, Q4H, PRN Pain, Start date: 10/18/11 17:41:00, Duration: 30 day, Stop date: 11/17/11 17:40:00 IVP No Longer Active [facility] 10/18/2011 [facility] Saline Flush 0.9% 5 ml, Route: IVP, Drug Form: INJ, PRN, PRN Line Flush, Start date: 10/18/11 17:39:00, Duration: 30 day, Stop date: 11/17/11 17:38:00 IVP No Longer Active [facility] 10/18/2011 [facility] nitroglycerin SL Tab 0.4 mg, 1 tab, Route: SL, Drug form: TAB, Q5Min, PRN Chest Pain, Start date: 10/18/11 17:39:00, Duration: 3 doses or times, Stop date: Limited # of times SL No Longer Active [facility] 10/18/2011 [facility] morphine Sulfate 2 mg, 1 mL, Route: IVP, Drug form: INJ, Q15Min, PRN Chest Pain, Start date: 10/18/11 17:39:00, Duration: 2 doses or times, Stop date: Limited # of times IVP No Longer Active [facility] 10/18/2011 [facility] ondansetron 4 mg, 2 mL, Route: IVP, Drug form: INJ, Q8H, PRN Nausea & Vomiting, Start date: 10/18/11 17:39:00, Duration: 30 day, Stop date: 11/17/11 17:38:00 IVP No Longer Active [facility] 10/18/2011 [facility] Multivitamin Adult as directed Orally Active - Orally [facility] Vitamin B-12 1 tablet Orally Active 1000 MCG Orally Once a day [facility] Ursodiol as directed Orally Active 300 MG Orally BID [facility] Calcium Carbonate as directed Orally Active 600 MG Orally BID [facility] Vitamin E 1 capsule Orally Active 400 UNIT Orally Once a day [facility] Atenolol 1 tablet Orally Active 50 [...] Index <0.4 0.0 - 2.5 10/19/2011 Normal [facility] CHEMISTRY CK MB <0.5 0.5 - 3.6 10/19/2011 Normal [facility] CHEMISTRY LDL 107 0 - 129 10/19/2011 Normal [facility] CHEMISTRY HDL 80 >=35 10/19/2011 Normal [facility] CHEMISTRY Chol 196 120 - 200 10/19/2011 Normal [facility] CHEMISTRY Trig 47 0 - 200 10/19/2011 Normal [facility] CHEMISTRY CHD Risk 2.45 3.90 - 5.80 10/19/2011 LOW [facility] CHEMISTRY AGAP 14.2 10.0 - 20.0 10/19/2011 Normal [facility] CHEMISTRY Creatinine Lvl 0.7 0.5 - 1.4 10/19/2011 Normal [facility] CHEMISTRY Potassium Lvl 4.2 3.5 - 5.1 10/19/2011 Normal [facility] CHEMISTRY Chloride Lvl 104 95 - 109 10/19/2011 Normal [facility] CHEMISTRY Sodium Lvl 140 135 - 145 10/19/2011 Normal [facility] CHEMISTRY Glucose Lvl 128 70 - 99 10/19/2011 [facility] <sup>1</sup>Interpretive Data: Adult reference range values reflect the clinical guidelines of the [place] [employer]. [facility] CHEMISTRY BUN 11 7 - 22 10/19/2011 Normal [facility] CHEMISTRY CO2 26 24 - 32 10/19/2011 Normal [facility] CHEMISTRY Calcium Lvl 9.5 8.5 - 10.5 10/19/2011 Normal [facility] CHEMISTRY Total CK 140 12 - 191 10/19/2011 Normal [facility] CHEMISTRY Troponin-I <0.02 0.00 - 0.40 10/19/2011 Normal [facility] HEMATOLOGY Segs 83.7 45.0 - 75.0 10/19/2011 HI [facility] HEMATOLOGY Lymphocytes 11.3 20.0 - 40.0 10/19/2011 LOW [facility] HEMATOLOGY Monocytes 4.4 2.0 - 12.0 10/19/2011 Normal [facility] HEMATOLOGY Eosinophils 0.4 0.0 - 4.0 10/19/2011 Normal [facility] HEMATOLOGY Eosinophils # 0.0 0.0 - 0.5 10/19/2011 Normal [facility] HEMATOLOGY Basophils # 0.0 0.0 - 0.2 10/19/2011 Normal [facility] HEMATOLOGY Lymphocytes # 1.3 1.0 - 5.5 10/19/2011 Normal [facility] HEMATOLOGY Monocytes # 0.5 0.0 - 0.8 10/19/2011 Normal [facility] HEMATOLOGY Basophils 0.2 0.0 - 1.0 10/19/2011 Normal [facility] HEMATOLOGY Segs-Bands # 9.5 1.5 - 8.1 10/19/2011 HI [facility] HEMATOLOGY RBC 3.90 4.20 - 5.40 10/19/2011 LOW [facility] HEMATOLOGY Hgb 12.0 12.0 - 16.0 10/19/2011 Normal [facility] HEMATOLOGY WBC 11.4 3.7 - 10.4 10/19/2011 HI [facility] HEMATOLOGY MCH 30.8 27.0 - 31.0 10/19/2011 Normal [facility] HEMATOLOGY MCV 91.7 81.0 - 99.0 10/19/2011 Normal [facility] HEMATOLOGY Hct 35.8 36.0 - 48.0 10/19/2011 LOW [facility] HEMATOLOGY MPV 12.1 7.4 - 10.4 10/19/2011 [facility] HEMATOLOGY MCHC 33.6 32.0 - 36.0 10/19/2011 Normal [facility] HEMATOLOGY Platelet 135 133 - 450 10/19/2011 Normal [facility] HEMATOLOGY RDW 13.3 11.5 - 14.5 10/19/2011 Normal [facility] CHEMISTRY CK MB Index 0.4 0.0 - 2.5 10/19/2011 Normal [facility] CHEMISTRY CK MB 0.7 0.5 - 3.6 10/19/2011 Normal [facility] CHEMISTRY BNP 92 <=100 10/19/2011 Normal <sup>2</sup>Interpretive Data: Elevated results are in line with increasing severity of congestive heart failure. Minor elevations between 100 and 300 may be seen with Myocardial Ischemia, Sodium retaining drugs, and compensated/treated heart failure. [facility] CHEMISTRY Troponin-I <0.02 0.00 - 0.40 10/19/2011 Normal [facility] CHEMISTRY Total CK 169 12 - 191 10/19/2011 Normal [facility] HEMATOLOGY Platelet 132 133 - 450 10/18/2011 LOW [facility] HEMATOLOGY MCH 30.7 27.0 - 31.0 10/18/2011 Normal [facility] HEMATOLOGY RDW 13.0 11.5 - 14.5 10/18/2011 Normal [facility] HEMATOLOGY MCV 91.4 81.0 - 99.0 10/18/2011 Normal [facility] HEMATOLOGY MCHC 33.6 32.0 - 36.0 10/18/2011 Normal [facility] HEMATOLOGY MPV 12.7 7.4 - 10.4 10/18/2011 [facility] HEMATOLOGY Hct 36.8 36.0 - 48.0 10/18/2011 Normal [facility] HEMATOLOGY WBC 13.9 3.7 - 10.4 10/18/2011 [facility] HEMATOLOGY RBC 4.03 4.20 - 5.40 10/18/2011 LOW [facility] HEMATOLOGY Hgb 12.4 12.0 - 16.0 10/18/2011 Normal [facility] HEMATOLOGY Monocytes 11.7 2.0 - 12.0 10/18/2011 Normal [facility] HEMATOLOGY Lymphocytes 23.6 20.0 - 40.0 10/18/2011 Normal [facility] HEMATOLOGY Segs 61.5 45.0 - 75.0 10/18/2011 Normal [facility] HEMATOLOGY Plt Morph Normal (10/18/2011 16:30:00) 10/18/2011 Normal [facility] HEMATOLOGY RBC Morph Normal (10/18/2011 16:30:00) 10/18/2011 Normal [facility] HEMATOLOGY Monocytes # 1.6 0.0 - 0.8 10/18/2011 [facility] HEMATOLOGY Lymphocytes # 3.3 1.0 - 5.5 10/18/2011 Normal [facility] HEMATOLOGY Segs-Bands # 8.6 1.5 - 8.1 10/18/2011 [facility] HEMATOLOGY Basophils 0.3 0.0 - 1.0 10/18/2011 Normal [facility] HEMATOLOGY Eosinophils 2.9 0.0 - 4.0 10/18/2011 Normal [facility] HEMATOLOGY Basophils # 0.0 0.0 - 0.2 10/18/2011 Normal [facility] HEMATOLOGY Eosinophils # 0.4 0.0 - 0.5 10/18/2011 Normal [facility] Pathology Reports No Data Provided [...] bony abnormality of the left elbow. SL: [id number] 07/28/2017 [facility] Shoulder series DX Study: Left shoulder, 3 views Clinical Indication: Left shoulder pain post fall Comparison: None FINDINGS: Multiple views of the left shoulder show no acute bony fracture or joint dislocation. Mild AC joint osteoarthrosis is seen. Soft tissues are unremarkable. IMPRESSION: No acute bony abnormality of the left shoulder. SL: [id number] 07/28/2017 [facility] Consultation Notes No Data Provided [...] Cardiovascular Temperature Oral (F) 98.0 F 07/29/2017 [facility] Heart Rate 68 07/29/2017 [facility] Systolic (mm Hg) 138 07/29/2017 [facility] Diastolic (mm Hg) 80 07/29/2017 [facility] Respitory Rate 17 07/29/2017 [facility] Weight 75 07/28/2017 [facility] BMI Calculated 28.38 07/28/2017 [facility] Height 162.56 cm 07/28/2017 [facility] Systolic (mm Hg) 155 07/28/2017 [facility] Diastolic (mm Hg) 89 07/28/2017 [facility] Heart Rate 59 07/28/2017 [facility] Respitory Rate 18 07/28/2017 [facility] Temperature Oral (F) 97.5 F 07/28/2017 [facility] Temperature Oral (F) 97.9 F 10/19/2011 [facility] Respitory Rate 20 10/19/2011 [facility] Heart Rate 82 10/19/2011 [facility] Diastolic (mm Hg) 74 10/19/2011 [facility] Systolic (mm Hg) 119 10/19/2011 [facility] Systolic (mm Hg) 121 10/19/2011 [facility] Heart Rate 76 10/19/2011 [facility] Respitory Rate 20 10/19/2011 [facility] Temperature Oral (F) 97.8 F 10/19/2011 [facility] Diastolic (mm Hg) 71 10/19/2011 [facility] Systolic (mm Hg) 130 10/19/2011 [facility] Diastolic (mm Hg) 77 10/19/2011 [facility] Heart Rate 74 10/19/2011 [facility] Respitory Rate 20 10/19/2011 [facility] Temperature Oral (F) 97.5 F 10/19/2011 [facility] Weight 79.545 10/19/2011 [facility] Height 167.64 cm 10/19/2011 [facility] Encounters Location Location Details Encounter Type Encounter Number Reason For Visit Attending Provider ADM Date DC Date Status Source [facility] OU [id number] BRONCHITIS, CHF, CP ELLEN CLIFFORD 10/18/2011 10/19/2011 Active [facility] [id number] Fadia Peng 07/28/2017 07/29/2017 [facility] Procedures Procedure Code Date Perfomer Comments Source section [id number] [facility] Assessment and Plan No Data Provided for This Section Plan of Care No Data Provided for This Section Social History Social History Date Source Social History TypeResponse Smoking Status Never smoker; Exposure to Tobacco Smoke None; Cigarette Smoking Last 365 Days No; Reg Smoking Cessation Counseling No entered on: 07/28/17 07/29/2017 [facility] Family History No Data Provided for This Section Advance Directives No Data Provided for This Section Functional Status No Data Provided for This Section
--- OUTSIDE RECORDS SUMMARY | 2019-01-30 09:57 | XMS REPORT | Clinical Summary ---
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 ast Assessment & Plan: Both the [...] Taken Vital Sign Reading 08/14/2018 9:34 AM ASSOCIATE PROFESSOR [employer]IBL[employer]UDIES Blood Pressure 141/82 08/14/2018 9:29 AM ASSOCIATE PROFESSOR [employer]UDIES Pulse 60 08/14/2018 9:29 AM ASSOCIATE PROFESSOR [employer]UDIES Temperature 36.3 C (97.4 F) 08/14/2018 9:29 AM ASSOCIATE PROFESSOR [employer]UDIES Respiratory Rate 18 08/14/2018 9:29 AM ASSOCIATE PROFESSOR [employer]IBL[employer]UDIES Oxygen Saturation 95% - Inhaled Oxygen - Concentration 08/14/2018 9:29 AM ASSOCIATE PROFESSOR [employer]IES Weight 74.3 kg (163 lb 14.4 oz) 08/14/2018 9:29 AM ASSOCIATE PROFESSOR [employer]UDIES Height 157.5 cm (5' 2") 08/14/2018 9:29 AM ASSOCIATE PROFESSOR [employer]IBL[employer]UDIES Body Mass Index 29.98 Plan of Treatment Care Team Description Date Type Specialty Chip Justice MD [facility] [address] [place] [address] [phone] 02/12/2019 Appointment Radiology Resource, [facility] Hepatology Clinic B 02/12/2019 Office Visit Hepatology Procedures Comments Procedure Name Priority Date/Time Associated Diagnosis URINALYSIS W/ MICROSCOPIC Routine 08/23/2018 Autoimmune hepatitis 11:37 AM ASSOCIATE PROFESSOR [employer]UDIES (HCC) Lower abdominal pain URINE CULTURE Routine 08/23/2018 Autoimmune hepatitis 11:37 AM ASSOCIATE PROFESSOR [employer]UDIES (HCC) Lower abdominal pain CBC W/PLT COUNT & AUTO Routine 08/14/2018 Abnormal liver enzymes DIFFERENTIAL 11:18 AM ASSOCIATE PROFESSOR [employer]IES PROTHROMBIN TIME/INR Routine 08/14/2018 Abnormal liver enzymes 11:18 AM ASSOCIATE PROF[employer]OR [employer]IES CBC W/PLT COUNT & AUTO Routine 08/14/2018 Abnormal liver enzymes DIFFERENTIAL 11:18 AM ASSOCIATE PROFESSOR [employer]IES MISCELLANEOUS LAB ORDER Routine 08/14/2018 Abnormal liver enzymes 11:18 AM ASSOCIATE PROFESSOR [employer]UDIES PLATELET COUNT Routine 04/10/2018 Thrombocytopenia (HCC) 9:35 AM CDT THROMBOPOIETIN (TPO) Routine 01/30/2018 10:03 AM CDT after 01/29/2018 Results * Urinalysis w/ Microscopic (08/23/2018 11:37 AM ASSOCIATE PROFESSOR [employer]LICAL STUDIES) Color, UA YELLOW YELLOW [facility] Appearance CLEAR CLEAR [facility] Specific Grants, UA 1.005 1.001 - 1.035 [facility] pH, [...] Agency Comment Performing Organization Information: Site ID: [id number] Name: [facility] Address: [address] [place] [id number] Director: Nicolle Edmond Performing Organization Address [facility] Phone Number [facility] [address] [place] [address] [facility] * Urine culture (08/23/2018 11:37 AM ASSOCIATE PROFESSOR [employer] STUDIES) Culture Comment: [facility] CULTURE, URINE, SPECIAL MICRO NUMBER:[id number] TEST STATUS: FINAL SPECIMEN SOURCE: OTHER (SPECIFY) SPECIMEN QUALITY:ADEQUATE RESULT: No Growth Specimen Urine Narrative Performed At FASTING:NO [facility] FASTING: NO Resulting Agency Comment Performing Organization Information: Site ID: [id number] Name: [facility] Address: [address] [place] [phone] Director: Nicolle Edmond Performing Organization Address City/[facility]/Zipcode Phone Number [facility] [address] [place] [address] [facility] * Miscellaneous lab test (08/14/2018 11:18 AM ASSOCIATE PROFESSOR [employer]IBL[employer] STUDIES) Scan Result [facility] Specimen Blood Narrative Performed At Performing Organization Address City/State/Zipcode Phone Number [facility] [address] [place], [place] * CBC with platelet count + automated diff (08/14/2018 11:18 AM ASSOCIATE PROFESSOR [employer] STUDIES) WBC 4.8 3.5 - 10.5 K/L [facility] RBC 4.06 3.93 - 5.22 M/L [facility] Hemoglobin 12.5 11.2 - 15.7 GM/DL [facility] Hematocrit 39.0 34.1 - 44.9 % [facility] MCV 96.1 (H) 79.4 - 94.8 fL [facility] MCH 30.8 25.6 - 32.2 pg [facility] MCHC 32.1 (L) 32.2 - 35.5 GM/DL [facility] RDW 12.0 11.7 - 14.4 % [facility] Platelets 97 (L) 150 - 450 K/CU MM [facility] MPV 13.5 (H) 9.4 - 12.3 fL [facility] nRBC 0 0 - 0 /100 WBC [facility] % Neutros 35 % [facility] % Lymphs 51 % [facility] % Monos 11 % [facility] % Eos 3 % [facility] % Baso 1 % [facility] # Neutros 1.64 1.56 - 6.13 K/L [facility] # Lymphs 2.43 1.18 - 3.74 K/L [facility] # Monos 0.51 (H) 0.24 - 0.36 K/L [facility] # Eos 0.14 0.04 - 0.36 K/L [facility] # Baso 0.04 0.01 - 0.08 K/L [facility] Immature 0 0 - 1 % [facility] Granulocytes-Relative [facility] Specimen Blood Performing Organization Address City/State/Zipcode Phone Number [facility] [address] [place] [address] MEDICAL CENTER * Pro-time/INR (08/14/2018 11:18 AM ASSOCIATE PROFESSOR OF BIBLICAL STUDIES) Protime 12.4 11.7 - 14.7 seconds [facility] INR 0.9 <=5.9 [facility] Specimen Blood Narrative Performed At RECOMMENDED COUMADIN/WARFARIN INR THERAPY RANGES [facility] STANDARD DOSE: 2.0 - 3.0 Includes: PROPHYLAXIS for venous thrombosis, [facility] systemic embolization; TREATMENT for venous thrombosis and/or pulmonary embolus. HIGH RISK: Target INR is 2.5-3.5 for patients with mechanical heart valves. Performing Organization Address City/[facility]/Zipcode Phone Number [id number] [place] [address] [phone] * Platelet count (04/10/2018 9:35 AM CDT) Platelets 115 (L) 150 - 450 K/CU MM [facility] Specimen Blood Performing Organization Address City/[facility] Centercode Phone Number [address] [address] [phone] [address] * THROMBOPOIETIN (TPO) (01/30/2018 10:03 AM CDT) THROMBOPOIETIN (TPO) 64 7 - 99 pg/mL DANIELA Comment: This test was performed using a kit that has not been cleared or approved by the FDA. The analytical performance characteristics of this test have been determined by [facility]. This test should not be used for diagnosis without confirmation by other medically established means. Specimen Narrative Performed At FASTING:NO [facility] AN UPDATE OR CORRECTION HAS BEEN MADE TO NAME FASTING: NO Resulting Agency Comment Performing Organization Information: Site ID: [id number] Name: [facility], Address: [address] [place] [phone] Director: Dhara Manuel MD,PhD,AYDE Performing Organization Address City/State/Zipcode Phone Number [facility] [address] [place] [address] DANIELA after 01/29/2018 Insurance Payer Benefit Subscriber ID Type Phone Address Plan / Group [employer] x[facility]xxxx PPO [phone] [address] [place] [address] O
--- NOTE | 2019-01-30 11:08 | Operative Report ---
DATE OF PROCEDURE: 01/30/2019 SURGEON: Pascual Aponte MD [facility] ATTENDANT: Berto Adams PA-C. PREOPERATIVE DIAGNOSIS: Osteoarthritis right hip. POSTOPERATIVE DIAGNOSIS: Osteoarthritis right hip. PROCEDURE: Right total hip arthroplasty. INDICATIONS: The patient is a 58-year-old woman with severe arthritic changes in her right hip. She has failed this conservative management and would like to proceed with a right total hip replacement. The risks and benefits have been explained. The implants, the hospital stay and recovery have all been discussed. All of the family's questions have been answered. They state they understand and wished to proceed. PROCEDURE IN DETAIL: The patient was brought to the operating room and placed under general anesthetic. She received prophylactic antibiotics and tranexamic acid in the holding area. She was positioned in the left lateral decubitus position. Her right hip was prepped and draped in a sterile manner. A preoperative time-out was performed. A limited incision posterior approach was made to the right hip. Hemostasis was obtained with electrocautery. A deep self-retaining Charnley retractor was placed. The posterior capsule was carefully exposed. Further hemostasis was obtained with electrocautery. The short external rotators and posterior capsule were released. The hip was dislocated and an oscillating saw was used to resect the femoral head. Complete loss of articular cartilage was known and noted on the femoral head. Acetabular retractors were placed. The capsule was preserved for later repair. The labrum was excised. Throughout the case, the hip was thoroughly irrigated numerous times with a combination of a pulsatile spray lavage and a diluted mixture of polymyxin and vancomycin spray. The true floor of the acetabulum was established with a 46 mm reamer. The socket was sequentially reamed up to 55 mm. This accomplished bleeding hemispherical cancellous bone. A fairly large subchondral cyst in the dome of the acetabulum was debrided and packed with autologous bone graft taken from the femoral head. A [employer] OsseoTi socket with a 56 mm outer diameter was then impacted into place. Fixation was augmented with a single 25 mm screw placed into the ilium. Excellent fixation was felt to be obtained. The hip was further irrigated and a highly cross-linked polyethylene liner with a 36 mm inner diameter and no posterior elevation was then impacted into place. Care was taken to make sure that there was no evidence of soft tissue interposition. A portion of a 100 mL premixed pericapsular KIEL injection was placed around the socket. The socket was packed with a moistly soaked lap sponge. Attention was directed towards the proximal femur. A box cutting osteotome and taper pin reamer were used to establish entry to the femoral canal. The [employer] taper lock broaches were then impacted into place. A size 13 stem had good canal fill and stability for trial reduction. A standard 36 mm head and neck provided appropriate worship of limb length and excellent stability to a full arc of motion. The trial implants were removed. The remainder of the rec injection was placed into the more subcutaneous tissue. The implants were seated. The head and neck were placed onto a clean and dry stem. A final reduction was performed. The hip was further irrigated. 500 mg of vancomycin powder was then sprinkled into the joint. The posterior capsule was carefully repaired with interrupted #2 Ethibond. The proximal tensor fascia and gluteal fascia were closed with #2 Ethibond. The skin was closed with subcuticular Vicryl, Mastisol, and Steri-Strips. Estimated blood loss was 50 mL. She was returned to the supine position, extubated and transported to the recovery room in stable condition. Pascual Aponte MD DR/RAÚL /[id number]
--- NOTE | 2019-01-30 11:08 | Diagnostic Imaging Report ---
EXAMINATION: PELVIS AP 1-2 VIEWS INDICATION: Postoperative COMPARISON: None FINDINGS: Anatomic alignment status post right total hip replacement. No unexpected acute fracture. Postoperative subcutaneous emphysema. Mild degenerative changes of the left hip joint. IMPRESSION: Anatomic alignment status post right total hip replacement. Signed by: Cynthia Gallegos MD on 01/30/2019 11:04 AM
[2019-01-30] MEDS: ACETAMINOPHEN 1000 MG/100 ML IV SCH ×3 (12:00→17:42)
--- NOTE | 2019-01-30 12:50 | NUR ---
Received patient from PACU, lying in bed with eyes open with drowsiness. Hip stabilized. Denies pain at this time. Patient reported absent sensation on BLE. Family at bedside. Patient is alert and oriented x3. Respiration even and unlabored without SOB. Call light within reach.
--- NOTE | 2019-01-30 14:33 | NUR ---
DR PICKARD OFFICE PREARRANGED FOLLOWING DISCHARGE PLAN OF: HOME HEALTH WITH HOME CARE PROVIDERS CONFIRMED WITH SILVANA [phone] PROVIDED HOME ADDRESS PHONE AND DAUGHTER CONTACT AND PROJECTED DISCHARGE OF 01/31/2019 FOR HOME HEALTH TO BEGIN ON 02/01/2019 DME 3 IN ONE COMMODE. AND ROLLING WALKER WITH WHEELS. PROVIDED BY [employer] TO BE DELIVERED TO HOSPITAL ROOM BY 10 AM CONFIRMED WITH ZAC JAIMES SIGNED AND ON CHART COPY LEFT WITH PATIENT GAVE CARD FOR QUESTIONS AND OR CONCERNS.
[2019-01-30] MEDS ORDERED: CELECOXIB 100 MG CAP PO SCH (17:00)
[2019-01-30] MEDS: ASPIRIN 325 MG TAB PO SCH (17:42)
[2019-01-30] MEDS: URSODIOL 300 MG CAP PO SCH (17:42)
[2019-01-30] MEDS: CELECOXIB 200 MG CAP PO SCH (17:42)
[2019-01-30] MEDS ORDERED: FENTANYL CITRATE/PF 100MCG/2 ML INJ ONE (18:22)
[2019-01-30] MEDS ORDERED: MIDAZOLAM HCL 2 MG/2 ML VIAL ONE (18:22)
[2019-01-30] MEDS ORDERED: DEXAMETHASONE SOD PHOS INJ 4 MG/ML VIAL ONE (18:52)
[2019-01-30] MEDS ORDERED: ONDANSETRON HCL INJ 2MG/ML 2ML 2 MG/ML VIAL ONE (18:52)
[2019-01-30] MEDS ORDERED: PROPOFOL IV EMULSION 10 MG/ML 20 ML VIAL ONE (18:52)
[2019-01-30] MEDS ORDERED: LIDOCAINE HCL 2% LOCAL INJ 5 ML SDV VIAL INJ ONE (18:52)
--- NOTE | 2019-01-30 19:20 | NUR ---
BEDSIDE REPORT RECEIVED FROM ALCON WELLS AT THIS TIME. PATIENT RESTING IN BED. SCDS IN PLACE. ABDUCTOR PILLOW IN PLACE. BED IS IN LOW LOCKED POSITION AND CALL LIGHT IS IN REACH. WILL CONTINUE TO MONITOR PATIENT.
[2019-01-30] MEDS: VANCOMYCIN 1GM/NS 250 ML 250 ML IV SCH (20:00)
[2019-01-30] MEDS ORDERED: ZOLPIDEM TARTRATE 5 MG TAB PO PRN (21:00)
[2019-01-31] VITALS: BP 104/55
[2019-01-31] MEDS: ACETAMINOPHEN 1000 MG/100 ML IV SCH ×2 (01:06→06:00)
[2019-01-31 04:00] VITALS: BP 97/52
[2019-01-31 05:54] LABS: HEMATOCRIT 30.2 % (34.2-44.1); HEMOGLOBIN 10.1 g/dL (12.0-16.0)
--- NOTE | 2019-01-31 06:47 | Consultation ---
DATE OF CONSULTATION: HISTORY OF PRESENT ILLNESS: The patient is a 58-year-old lady, status post right hip arthroplasty for end-stage osteoarthritis. She is doing well postoperatively denies any fever, chills, nausea, vomiting, headache, shortness of breath, or dizziness on review of systems. PAST MEDICAL HISTORY: Significant for liver disease, hypertension . ALLERGIES: NONE. SOCIAL HISTORY: Nonsmoker, nondrinker. FAMILY HISTORY: Noncontributory. PHYSICAL EXAMINATION: VITAL SIGNS: Temperature 98.1, pulse 68, blood pressure . NECK: Supple. CARDIOVASCULAR: Regular rate and rhythm. LUNGS: Clear to auscultation bilaterally. ABDOMEN: Good bowel sounds. Soft and nontender. EXTREMITIES: No clubbing or cyanosis. NEUROLOGIC: Nonfocal. ASSESSMENT AND PLAN: 1. CBC. 2. Liver disease. Continue with her medication. 3. Hypertension. Continue with atenolol. Please see hospital chart for full details. MD RAMAN Mace/RAÚL /[id number]
--- NOTE | 2019-01-31 07:02 | NUR ---
BEDSIDE REPORT GIVEN TO ALCON MCPHERSON AT THIS TIME.
[2019-01-31 08:08] VITALS: BP 113/60
[2019-01-31] MEDS ORDERED: ASPIRIN81 MG PO (08:41)
[2019-01-31 08:45] VITALS: BP 113/60
[2019-01-31] MEDS: ASPIRIN 325 MG TAB PO SCH (08:45)
[2019-01-31] MEDS: CELECOXIB 200 MG CAP PO SCH (08:45)
[2019-01-31] MEDS: URSODIOL 300 MG CAP PO SCH (08:45)
[2019-01-31] MEDS: VANCOMYCIN 1GM/NS 250 ML 250 ML IV SCH (08:45)
[2019-01-31] MEDS ORDERED: OYST-CAL-D 500MG TABLET PO SCH (09:00)
[2019-01-31] MEDS ORDERED: VITAMIN E 400 UNIT CAP PO SCH (09:00)
[2019-01-31] MEDS ORDERED: ATENOLOL 50 MG TAB PO SCH (09:00)
[2019-01-31] MEDS ORDERED: MULTIVITAMINS/MINERALS TAB PO SCH (09:00)
[2019-01-31] MEDS ORDERED: ACETAMINOPHEN 1000 MG/100 ML IV PRN (09:30)
[2019-01-31 12:02] VITALS: BP 113/68
--- NOTE | 2019-01-31 12:40 | NUR ---
patient alert and oriented with family at bedside. Discharge instructions given at this time, patient verbalized understanding. IV discontinued, catheter in tact and small dressing applied. patient to be wheeled out to personal auto for family to drive home.
== END 2019-01-31 13:06 | disposition home health service (06) | DRG 470 ==
LOC: OR 06:16 → PACU V 09:30 → MED/SURG 12:51
PROVIDERS: ADMIT Specialist; ATTEND Specialist
PROC: 0SR904A Replacement of Right Hip Joint with Ceramic on Polyethylene Synthetic Substitute, Uncemented, Open Approach (ICD-10-PCS; principal; 2019-01-30 08:00)
DX: M16.11 Unilateral primary osteoarthritis, right hip (principal); K74.60 Unspecified cirrhosis of liver; I10 Essential (primary) hypertension
CPT/HCPCS: 36415; 72170; 80053; 85014; 85018; 85025; 85610; 85730; 86850; 86900; 86920; 93005; 96360; 96361; C1713; J0171; J1100; J1885; J2001; J2250; J2405; J2795; J3010; J3370; J7030

== ENCOUNTER → 2019-01-30 | Outpatient (CLI) | payer BC ==
[~2019-01-30] MED LIST: ASPIRIN81 MG PO; ATENOLOL50 MG PO; BACITRACIN 50,000 UNIT VIAL ONE; BUPIVACAINE HCL 0.5% INJ 30 ML VIAL INJ ONE; CALCIUM + VITA1 EACH PO; MULTI-VITAMIN1 EACH PO; SODIUM CHLORIDE 0.9% 500ML 500 ML ONE; TRANEXAMIC ACID 1,000 MG/10 ML ML ONE; VANCOMYCIN HCL 1,000 MG ONE; VITAMIN B-121000 MC1 PO; VITAMIN E400 UNIT PO; [UNRECOGNIZED DRUG - OTHER] PO
== END ==
LOC: RAD 05:00 → EDSTATUS 08:00
PROVIDERS: ATTEND Specialist
DX: Z01.818 Encounter for other preprocedural examination (principal); M16.11 Unilateral primary osteoarthritis, right hip
CPT/HCPCS: J3370; J7040